=== PATIENT | male | born 1970 | race Caucasian/White ===

== ENCOUNTER → 2016-06-27 | Outpatient (CLI) | payer OTHER ==
[~2016-06-27] MED LIST: ACET500C OR; IBUP200C PO; IBUP400T OR; [UNRECOGNIZED DRUG - OTHER] OR
--- NOTE | 2016-06-28 02:09 | ECWPNPC ---
PATIENT NAME: AUBRIE CRONIN : 1970 GENDER: MALE VISIT DATE: 06/27/2016 DISCHARGE DATE: 06/27/16 0915 VISIT LOCKED DATE TIME: PHYSICIAN: KAMILA PASTRANA RESOURCE: KAMILA PASTRANA REASON FOR APPOINTMENT 1. LOW BACK PAIN HISTORY OF PRESENT ILLNESS HISTORY OF PRESENT ILLNESS: PAIN THE PATIENT DESCRIBES THE PAIN... FALL RISK SCREENING: SCREENING :NO FALLS IN THE PAST YEAR TODAY'S VISIT: NOTES: WC FOLLOWUP FOR LOW BACK PAIN. RATES PAIN TODAY 3/10. DESCRIBES PAIN CONSTANT, ACHING AND SORE. NOTES PAIN IS ALWAYS WORSE DENIA THING IN THE MORNING. PAIN IS CENTERED ACROSS THE LOW BACK WITH RADIATION INTO BOTH BUTTUCKS AND TO LEGS TO LEVEL OF THE POSTERIOR KNEE. THIS IMPROVES WITH ACTIVITY THROUGH THE DAY. NO RECENT FALLS OR INJURIES. NO NUMBNESS, TINGLING OR WEAKNESS IN LEGS. . CURRENT MEDICATIONS TAKING MULTIVITAMINS CAPSULE 1 CAP ORALLY DAILY TAKING ALEVE 1-2 TABS ORALLY DAILY TAKING ZYRTEC 1 TAB ORAL DAILY MEDICATION LIST REVIEWED AND RECONCILED WITH THE PATIENT PAST MEDICAL HISTORY NO MEDICAL HISTORY. ALLERGIES POISON FRANTZ: RASH: ALLERGY SURGICAL HISTORY NO SURGICAL HISTORY DOCUMENTED. SOCIAL HISTORY GENERAL: TOBACCO USE ARE YOU A:NONSMOKER LEARNING BARRIERS / SPECIAL NEEDS ORIENTED TO PLAN OF CARE: PATIENT, PAIN MANAGEMENT PATIENT, ORIENTED TO PLAN OF CARE: PATIENT, PAIN MANAGEMENT PATIENT. NEW PATIENT PAIN DIARY TODAY'S VISITNOTES FROM 0-10, WHAT LEVEL IS YOUR PAIN TODAY?0 PAIN CLINIC PFS, CLERGY, PUBLIC HEALTH REFERRALS PFS REFERRAL NEEDED?NO CLERGY REFERRAL NEEDED?NO PUBLIC HEALTH REFERRAL NEEDED?NO WAS THE PROVIDER NOTIFIED OF ANY PERTINENT INFO?NO PFS REFERRAL NEEDED?NO CLERGY REFERRAL NEEDED?NO PUBLIC HEALTH REFERRAL NEEDED?NO WAS THE PROVIDER NOTIFIED OF ANY PERTINENT INFO?NO REVIEW OF SYSTEMS CONSTITUTIONAL: ANY CHANGE IN YOUR MEDICAL CONDITION? NO . CHILLS NO . FEVER NO . INFECTION: DO YOU HAVE NEW INFECTIONS? NO . DO YOU HAVE HISTORY OF MRSA? NO . MUSCULOSKELETAL: ANY NEW PATTERNS OF PAIN OR NUMBNESS? NO . GASTROENTEROLOGY: ANY NEW CHANGE IN BOWEL CONTROL? NO . GENITOURINARY: ANY NEW CHANGE IN BLADDER CONTROL? NO . IS THERE A CHANCE YOU COULD BE ? NO . HEMATOLOGY/LYMPH: DO YOU TAKE ANY BLOOD THINNERS? (FOR EXAMPLE- COUMADIN, PLAVIX, AGGRENOX, PLATEL, PRADAXA, OR XARELTO) NO . WHEN WAS YOUR LAST DOSE? DATE: TIME: . NEUROLOGY: HAVE YOU FALLEN IN THE PAST 6 MONTHS? NO . ANY NEW EXTREMITY NUMBNESS OR WEAKNESS? NO . CARDIOLOGY: DO YOU HAVE A PACEMAKER OR DEFIBRILLATOR? NO . RESPIRATORY: HAVE YOU BEEN SICK IN THE PAST WEEK? NO . FEVER NO . FLU LIKE SYMPTOMS? NO . COUGH NO . INTEGUMENTARY: DO YOU HAVE ANY RASHES OR OPEN SORES? NO . ALLERGIC/IMMUNO: ARE YOU ALLERGIC TO SHELLFISH OR IV DYE? NO . ANY NEW ALLERGIES? YES,POISON FRANTZ . PSYCHIATRIC: DO YOU HAVE THOUGHTS OF HURTING YOURSELF OR SOMEONE ELSE? NO . ARE YOU ABUSED, NEGLECTED, OR IN AN UNSAFE ENVIRONMENT? NO . ENDOCRINOLOGY: ARE YOU DIABETIC? NO . OTHER: DO YOU NEED ANY PRESCRIPTIONS? NO . IF YES, PLEASE LIST: ____ . ANY NEW PROBLEMS WITH YOUR MEDICATIONS? NO . WHEN DID YOU LAST EAT? ____ . WHEN DID YOU LAST DRINK? ____ . WHAT DID YOU LAST DRINK? ____ . NAME OF PERSON DRIVING YOU HOME? ____ . DO YOU HAVE ANY OTHER QUESTIONS OR CONCERNS NO . REVIEWED BY: PROVIDER: KAMILA NEW . VITAL SIGNS WT 183 LBS, HT 67 IN, BMI 28.66 INDEX, BP 134/80 MM HG, HR 75 /MIN, RR 16 /MIN, TEMP 97.3 F, OXYGEN SAT % 98, NA INITIALS TL 0849, REVIEWED BY: CS. EXAMINATION GENERAL EXAMINATION: LUNGS:CLEAR TO AUSCULTATION BILATERALLY. HEART:HEART RATE REGULAR. MUSCULOSKELETAL:MUSCLE STRENGTH TESTING 5/5 BILATERAL LOWER EXTREMITIES. MILD TENDERNESS OVER LUMBOSACRAL AXIS AND ACROSS SACRUM. RISES EASILY TO A STANDING POSITION. POSTURE SLIGHTLY STOOPED. GAIT NONANTALGIC. ASSESSMENTS LUMBAR DISC DISPLACEMENT WITHOUT MYELOPATHY - M51.26 (PRIMARY) LUMBAR FACET ARTHROPATHY - M46.96 TREATMENT LUMBAR DISC DISPLACEMENT WITHOUT MYELOPATHY NOTES: CONTINUE EXERCISES AND STRETCHES ON A DAILY BASIS. CALL IF INCREASED PAIN. PROCEDURES PN WORKMANS' COMP OPINION IN YOUR OPINION, WAS THE INCIDENT THAT THE PATIENT DESCRIBED THE COMPETENT MEDICAL CAUSE OF THIS INJURY/ILLNESS? YES ARE THE PATIENT'S COMPLAINTS CONSISTENT WITH HIS/HER HISTORY OF THE INJURY/ILLNESS? YES IS THE PATIENT'S HISTORY OF THE INJURY/ILLNESS CONSISTENT WITH YOUR OBJECTIVE FINDING? YES WHAT IS THE PERCENTAGE OF TEMPORARY IMPAIRMENT? MODERATE TO MARKED = 66.7% IS THE PATIENT WORKING? YES DOCTOR ON SITE: BARAK DE LA FUENTE MD PROCEDURE CODES FA211 ESTABILISHED PATIENT [facility] CHARGE DISPOSITION & COMMUNICATION FOLLOW UP 10 MONTHS (REASON: WC BACK) ELECTRONICALLY SIGNED BY LIZETTE RODRIGEUS ON 06/27/2016 AT 10:11 AM EST DISCLAIMER : THIS IS A VISIT SUMMARY EXTRACTED FROM THE [employer] CHART. IT IS NOT A COPY OF THE [employer] PROGRESS NOTE. ANTHONY
== END ==
LOC: M PAIN 08:30
PROVIDERS: ATTEND Nurse Practitioner Family
DX: M51.26 Other intervertebral disc displacement, lumbar region (principal); M46.96 Unspecified inflammatory spondylopathy, lumbar region; L23.7 Allergic contact dermatitis due to plants, except food

== ENCOUNTER → 2016-08-27 | Outpatient (REF) | payer OTHER | LOC: M LAB REF 16:34 | PROVIDERS: ATTEND Nurse Practitioner Family | DX: L23.7 Allergic contact dermatitis due to plants, except food (principal) ==

== ENCOUNTER → 2017-06-18 | Outpatient (CLI) | payer OTHER | LOC: M PAIN 10:15 | DX: M51.26 Other intervertebral disc displacement, lumbar region (principal); M46.96 Unspecified inflammatory spondylopathy, lumbar region; L25.5 Unspecified contact dermatitis due to plants, except food; Z79.899 Other long term (current) drug therapy | CPT/HCPCS: G0463 ==

== ENCOUNTER → 2017-10-17 | Outpatient (REF) | payer OTHER ==
[2017-10-17 13:12] LABS: RHEUMATOID FACTOR QUANT < 10.0 IU/ML (<15.0)
[2017-10-18 14:59] LABS: ANTINUCLEAR ANTIBODIES DIRECT Negative (Negative)
== END ==
LOC: M LAB REF 12:19
DX: M13.0 Polyarthritis, unspecified (principal)

== ENCOUNTER → 2018-05-02 | Outpatient (CLI) | payer OTHER ==
[~2018-05-02] MED LIST changes: -IBUP200C PO; +IBUP200C25 PO
--- NOTE | 2018-05-17 23:46 | ECWPNPC ---
PATIENT NAME: AUBRIE CRONIN : 1970 GENDER: MALE VISIT DATE: 05/02/2018 DISCHARGE DATE: 05/02/18 1151 VISIT LOCKED DATE TIME: PHYSICIAN: BARAK HYATT MD RESOURCE: BARAK HYATT MD REASON FOR APPOINTMENT 1. WC BACK HISTORY OF PRESENT ILLNESS HISTORY OF PRESENT ILLNESS: PAIN THE PATIENT DESCRIBES THE PAIN... 48 YEAR OLD MALE PATIENT WITH A HISTORY OF CHRONIC LOW BACK PAIN. THE PATIENT DESCRIBES THE PAIN ACHING AND CONTINUOUS WITH A PAIN SCORE OF 3-4/10 DEPENDING ON THE ACTIVITIES HE IS DOING. 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 THE PATIENT SAYS THAT THE PAIN STARTS IN HIS LOW BACK AND RADIATES DOWN INTO HIS LEFT LEG. THE PATIENT SAYS THAT HE HAS DIFFICULTY LIFTING DUE TO THIS PAIN. THE PATIENT STATES THAT MEDICATION, PHYSICAL THERAPY, AND INJECTION THERAPY HAVE HELPED IN THE PAST. PATIENT DENIES UNEXPLAINABLE WEIGHT LOSS, FEVER, CHILLS, NEW CHANGES ON HIS URINARY OR BOWEL CONTROL. FALL RISK SCREENING: SCREENING :NO FALLS IN THE PAST YEAR CURRENT MEDICATIONS TAKING MULTIVITAMINS CAPSULE 1 CAP ORALLY DAILY TAKING ALEVE 1-2 TABS ORALLY DAILY TAKING BENADRYL ALLERGY 25 MG TABLET 1 TABLET NEEDED ORALLY EVERY 8 HRS TAKING BENADRYL EXTRA STRENGTH 2-0.1 % CREAM 1 APPLICATION TO AFFECTED AREA NEEDED EXTERNALLY THREE TIMES A DAY TAKING CETIRIZINE HCL 10 MG TABLET 1 TABLET ORALLY ONCE A DAY NOT-TAKING PRAMOSONE 1-2.5 % CREAM APPLY TO AFFECTED AREAS ON BOTH ARMS EXTERNALLY TWICE A DAY NOT-TAKING PREDNISONE 10 MG TABLET 4 TABS DAILY X 3 DAYS, 3 TABS DAILY X 3 DAYS, 2 TABS DAILY X 3 DAYS, THEN 1 TAB DAILY X 3 DAYS ORALLY ONCE A DAY MEDICATION LIST REVIEWED AND RECONCILED WITH THE PATIENT PAST MEDICAL HISTORY MEDICAL HISTORY VERIFIED. ALLERGIES POISON FRANTZ: RASH: ALLERGY SURGICAL HISTORY NO SURGICAL HISTORY DOCUMENTED. FAMILY HISTORY FATHER: , DIAGNOSED WITH DIABETES, HYPERTENSION MOTHER: ALIVE, DIAGNOSED WITH DIABETES, HYPERTENSION SIBLINGS: DIAGNOSED WITH HYPERTENSION 2 BROTHER(S) . DAD , PARKINSON'S DISEASE. SOCIAL HISTORY GENERAL: TOBACCO USE ARE YOU A:NONSMOKER HIV / HEP-C SCREENING HIV TEST OFFERED TO PATIENT:YES DATE OFFERED:08/24/2016 TEST ACCEPTED:NO REASON:PATIENT DECLINED HEP-C TEST OFFERED TO PATIENT:NO LEARNING BARRIERS / SPECIAL NEEDS BARRIERS TO LEARNING?NO HEARING IMPAIRED?NO VISION IMPAIRED?NO COGNITIVELY IMPAIRED?NO READINESS TO LEARN?YES LEARNING PREFERENCES?NO LEARNING CAPABILITIES PRESENT?YES EMOTIONAL BARRIERS?NO SPECIAL DEVICES?NO LICENSED LOAN OFFICER ASSISTANT NEEDED?NO PAIN CLINIC PFS, CLERGY, PUBLIC HEALTH REFERRALS HAS THE PATIENT BEEN EDUCATED REGARDING HIS/HER PLAN OF CARE?YES HAS THE PATIENT BEEN EDUCATED REGARDING PAIN, THE RISK FOR PAIN, THE IMPORTANCE OF EFFECTIVE PAIN MANAGEMENT, AND THE PAIN ASSESSMENT PROCESS?YES ADVANCE DIRECTIVE ADVANCE DIRECTIVE DISCUSSED WITH PATIENT:YES PT HAS NO ADVANCED DIRECTIVES, DECLINES INFORMATION OR ASSISTANCE AT THIS TIME REVIEWED WITH PT 05/02/18 1115 LAS. HOSPITALIZATION/MAJOR DIAGNOSTIC PROCEDURE NO HOSPITALIZATION HISTORY. REVIEW OF SYSTEMS REVIEWED BY: PROVIDER: BARAK HYATT MD . CONSTITUTIONAL: ANY CHANGE IN YOUR MEDICAL CONDITION? NO . CHILLS NO . FEVER NO . INFECTION: DO YOU HAVE NEW INFECTIONS? NO . DO YOU HAVE HISTORY OF MRSA? NO . MUSCULOSKELETAL: ANY NEW PATTERNS OF PAIN OR NUMBNESS? NO . GASTROENTEROLOGY: ANY NEW CHANGE IN BOWEL CONTROL? NO . GENITOURINARY: ANY NEW CHANGE IN BLADDER CONTROL? NO . IS THERE A CHANCE YOU COULD BE ? NO . HEMATOLOGY/LYMPH: DO YOU TAKE ANY BLOOD THINNERS? (FOR EXAMPLE- COUMADIN, PLAVIX, AGGRENOX, PLATEL, PRADAXA, OR XARELTO) NO . WHEN WAS YOUR LAST DOSE? DATE: TIME: . NEUROLOGY: HAVE YOU FALLEN IN THE PAST 6 MONTHS? NO . ANY NEW EXTREMITY NUMBNESS OR WEAKNESS? NO . CARDIOLOGY: DO YOU HAVE A PACEMAKER OR DEFIBRILLATOR? NO . RESPIRATORY: HAVE YOU BEEN SICK IN THE PAST WEEK? NO . FEVER NO . FLU LIKE SYMPTOMS? NO . COUGH NO . INTEGUMENTARY: DO YOU HAVE ANY RASHES OR OPEN SORES? NO . ALLERGIC/IMMUNO: ARE YOU ALLERGIC TO SHELLFISH OR IV DYE? NO . ANY NEW ALLERGIES? NO . PSYCHIATRIC: DO YOU HAVE THOUGHTS OF HURTING YOURSELF OR SOMEONE ELSE? NO . ARE YOU ABUSED, NEGLECTED, OR IN AN UNSAFE ENVIRONMENT? NO . ENDOCRINOLOGY: ARE YOU DIABETIC? NO . OTHER: DO YOU NEED ANY PRESCRIPTIONS? NO . IF YES, PLEASE LIST: ____ . ANY NEW PROBLEMS WITH YOUR MEDICATIONS? NO . WHEN DID YOU LAST EAT? ____ . WHEN DID YOU LAST DRINK? ____ . WHAT DID YOU LAST DRINK? ____ . NAME OF PERSON DRIVING YOU HOME? ____ . DO YOU HAVE ANY OTHER QUESTIONS OR CONCERNS NO . VITAL SIGNS WT 197.6 LBS, HT 67 IN, BMI 30.95 INDEX, BP 145/78 MM HG, HR 65 /MIN, RR 16 /MIN, TEMP 97.4 F, OXYGEN SAT % 99%, SAFE IN ENV? (Y/N) YES, NA INITIALS SC 11:05, REVIEWED BY: SYLVIE. EXAMINATION GENERAL EXAMINATION: PATIENT IS ALERT O X 3 AND COOPERATIVE. MILD TENDERNESS IN THE LOW BACK AREA. NORMAL GAIT. MRI OF THE LUMBAR SPINE DONE ON 03/22/2010 SHOWS BULGING DISCS AND FACET ARTHROPATHY CHANGES AT MULTIPLE LEVELS. ASSESSMENTS INTERVERTEBRAL DISC DISORDER WITH RADICULOPATHY OF LUMBAR REGION - M51.16 (PRIMARY) TREATMENT INTERVERTEBRAL DISC DISORDER WITH RADICULOPATHY OF LUMBAR REGION CLINICAL NOTES: WE DISCUSSED SEVERAL ISSUES WITH MR. CRONIN'S PAIN MANAGEMENT CASE. THE PATIENT REPORTS THAT HIS CONDITION IS STABLE AT THIS TIME AND THAT HE IS DOING WELL, SO THE PATIENT WILL FOLLOW UP IN SEVERAL MONTHS. INSTRUCTIONS WERE GIVEN, QUESTIONS WERE ANSWERED, PATIENT REPORTS UNDERSTANDING AND AGREES WITH THE PLAN. I, MICKIE RODRIGUEZ, DOCUMENTED THE ABOVE INFORMATION ACTING A SCRIBE FOR DR. HYATT. I HAVE REVIEWED THE ABOVE DOCUMENT, WRITTEN BY MICKIE CORONADO AND I VERIFY THAT IT IS ACCURATE. PROCEDURES PN WORKMANS' COMP OPINION IN YOUR OPINION, WAS THE INCIDENT THAT THE PATIENT DESCRIBED THE COMPETENT MEDICAL CAUSE OF THIS INJURY/ILLNESS? YES ARE THE PATIENT'S COMPLAINTS CONSISTENT WITH HIS/HER HISTORY OF THE INJURY/ILLNESS? YES IS THE PATIENT'S HISTORY OF THE INJURY/ILLNESS CONSISTENT WITH YOUR OBJECTIVE FINDING? YES WHAT IS THE PERCENTAGE OF TEMPORARY IMPAIRMENT? MODERATE TO MARKED = 66.7% IS THE PATIENT WORKING? YES DOCTOR ON SITE: BARAK DE LA FUENTE MD PROCEDURE CODES FA211 ESTABILISHED PATIENT [facility] FACILITY CHARGE G8427 CURRENT MEDS W/DOSAGES DOCUMENTED G8730 PAIN ASSESS POS TOOL F/U PLAN DOC DISPOSITION & COMMUNICATION FOLLOW UP MONTHS ELECTRONICALLY SIGNED BY BARAK HYATT MD, MD ON 05/17/2018 AT 09:34 PM EST DISCLAIMER : THIS IS A VISIT SUMMARY EXTRACTED FROM THE [employer] CHART. IT IS NOT A COPY OF THE [employer] PROGRESS NOTE. ANTHONY
== END ==
LOC: M PAIN 11:00
PROVIDERS: ATTEND Anesthesiology
DX: M51.16 Intervertebral disc disorders with radiculopathy, lumbar region (principal); G89.29 Other chronic pain; Z79.899 Other long term (current) drug therapy; Z91.09 Other allergy status, other than to drugs and biological substances

== ENCOUNTER → 2019-04-16 | Outpatient (CLI) | payer OTHER ==
--- NOTE | 2019-04-21 03:00 | ECWPNPC ---
PATIENT NAME: AUBRIE CRONIN : 1970 GENDER: MALE VISIT DATE: 04/16/2019 DISCHARGE DATE: 04/16/19 1002 VISIT LOCKED DATE TIME: PHYSICIAN: DEXTER RAMSEY RESOURCE: DEXTER RAMSEY REASON FOR APPOINTMENT 1. W/C BACK HISTORY OF PRESENT ILLNESS HISTORY OF PRESENT ILLNESS: PAIN THE PATIENT DESCRIBES THE PAIN... 48 YEAR OLD MALE PATIENT WITH A HISTORY OF CHRONIC LOW BACK PAIN. THE PATIENT DESCRIBES THE PAIN ACHING AND SORE WITH A PAIN SCORE OF 5/10 DEPENDING ON THE ACTIVITIES HE IS DOING. 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 THE PATIENT SAYS THAT THE PAIN STARTS IN HIS LOW BACK AND RADIATES DOWN INTO BOTH LEGS. THE PATIENT SAYS THAT HE HAS DIFFICULTY LIFTING DUE TO THIS PAIN. THE PATIENT STATES THAT MEDICATION, PHYSICAL THERAPY, AND INJECTION THERAPY HAVE HELPFUL IN THE PAST. WOULD LIKE TO DISCUSS LESI TODAY WITH A GOAL OF DECREASED PAIN AND INCREASED FUNCTIONALITY. FALL RISK SCREENING: SCREENING :NO FALLS REPORTED IN THE LAST YEAR CURRENT MEDICATIONS TAKING MULTIVITAMINS CAPSULE 1 CAP ORALLY DAILY TAKING CETIRIZINE HCL 10 MG TABLET 1 TABLET ORALLY ONCE A DAY TAKING ALEVE 1-2 TABS ORALLY DAILY DISCONTINUED BENADRYL EXTRA STRENGTH 2-0.1 % CREAM 1 APPLICATION TO AFFECTED AREA NEEDED EXTERNALLY THREE TIMES A DAY MEDICATION LIST REVIEWED AND RECONCILED WITH THE PATIENT PAST MEDICAL HISTORY MEDICAL HISTORY VERIFIED. ALLERGIES POISON FRANTZ: RASH - ALLERGY SURGICAL HISTORY NO SURGICAL HISTORY DOCUMENTED. FAMILY HISTORY FATHER: , DIAGNOSED WITH DIABETES, HYPERTENSION MOTHER: ALIVE, DIABETES, HYPERTENSION SIBLINGS: HYPERTENSION 2 BROTHER(S) . DAD , PARKINSON'S DISEASE. SOCIAL HISTORY GENERAL: TOBACCO USE ARE YOU A:NONSMOKER PAIN CLINIC PFS, CLERGY, PUBLIC HEALTH REFERRALS HAS THE PATIENT BEEN EDUCATED REGARDING HIS/HER PLAN OF CARE?YES HAS THE PATIENT BEEN EDUCATED REGARDING PAIN, THE RISK FOR PAIN, THE IMPORTANCE OF EFFECTIVE PAIN MANAGEMENT, AND THE PAIN ASSESSMENT PROCESS?YES LATEX QUESTIONNAIRE LATEX ALLERGY : HAVE YOU EVER DEVELOPED ANY TYPE OF REACTION AFTER HANDLING LATEX PRODUCTS SUCH RUBBER GLOVES, CONDOMS, DIAPHRAGMS, BALLOONS, SOCKS, OR UNDERWEAR?NO LATEX ALLERGY : HAVE YOU EVER DEVELOPED ANY TYPE OF REACTION DURING OR AFTER DENTAL APPOINTMENT, VAGINAL/RECTAL EXAMINATION, SURGICAL PROCEDURE, OR ANY OTHER EXPOSURE?NO LATEX RISK : HAVE YOU EVER HAD ANY DIFFICULTY BREATHING OR HIVES AFTER EATING OR HANDLING ANY FRUITS, OR VEGETABLES; SUCH KIWI, BANANAS, STONE FRUITS, OR CHESTNUTSNO LATEX RISK : DO YOU HAVE A PREVIOUS PERSONAL HISTORY OF MORE THAN NINE SURGERIES, SPINA BIFIDA, OR REPEATED CATHERIZATIONS? NO LATEX RISK : ARE YOU FREQUENTLY EXPOSED TO LATEX PRODUCTS IN YOUR OCCUPATION?YES DATE ASKED : 04/16/2019 HIV / HEP-C SCREENING HIV TEST OFFERED TO PATIENT:YES DATE OFFERED:08/24/2016 TEST ACCEPTED:NO HEP-C TEST OFFERED TO PATIENT:NO REASON:PATIENT DECLINED ADVANCE DIRECTIVE ADVANCE DIRECTIVE DISCUSSED WITH PATIENT:YES PT HAS NO ADVANCED DIRECTIVES, DECLINES INFORMATION OR ASSISTANCE AT THIS TIME VD LEARNING BARRIERS / SPECIAL NEEDS BARRIERS TO LEARNING?NO HEARING IMPAIRED?NO VISION IMPAIRED?NO COGNITIVELY IMPAIRED?NO READINESS TO LEARN?YES LEARNING PREFERENCES?NO LEARNING CAPABILITIES PRESENT?YES EMOTIONAL BARRIERS?NO SPECIAL DEVICES?NO SLIVER LAPPER NEEDED?NO REVIEWED WITH PT 05/02/18 1115 LAS. HOSPITALIZATION/MAJOR DIAGNOSTIC PROCEDURE NO HOSPITALIZATION HISTORY. REVIEW OF SYSTEMS REVIEWED BY: PROVIDER: SONNY NEW-Cortez . CONSTITUTIONAL: ANY CHANGE IN YOUR MEDICAL CONDITION? NO . CHILLS NO . FEVER NO . INFECTION: DO YOU HAVE NEW INFECTIONS? NO . DO YOU HAVE HISTORY OF MRSA? NO . MUSCULOSKELETAL: ANY NEW PATTERNS OF PAIN OR NUMBNESS? YES . GASTROENTEROLOGY: ANY NEW CHANGE IN BOWEL CONTROL? NO . GENITOURINARY: ANY NEW CHANGE IN BLADDER CONTROL? NO . IS THERE A CHANCE YOU COULD BE ? NO . HEMATOLOGY/LYMPH: DO YOU TAKE ANY BLOOD THINNERS? (FOR EXAMPLE- COUMADIN, PLAVIX, AGGRENOX, PLATEL, PRADAXA, OR XARELTO) NO . WHEN WAS YOUR LAST DOSE? DATE: TIME: . NEUROLOGY: HAVE YOU FALLEN IN THE PAST 12 MONTHS? NO . ANY NEW EXTREMITY NUMBNESS OR WEAKNESS? NO . CARDIOLOGY: DO YOU HAVE A PACEMAKER OR DEFIBRILLATOR? NO . RESPIRATORY: HAVE YOU BEEN SICK IN THE PAST WEEK? NO . FEVER NO . FLU LIKE SYMPTOMS? NO . COUGH NO . INTEGUMENTARY: DO YOU HAVE ANY RASHES OR OPEN SORES? NO . ALLERGIC/IMMUNO: ARE YOU ALLERGIC TO IV DYE? NO . ANY NEW ALLERGIES? NO . PSYCHIATRIC: DO YOU HAVE THOUGHTS OF HURTING YOURSELF OR SOMEONE ELSE? NO . ARE YOU ABUSED, NEGLECTED, OR IN AN UNSAFE ENVIRONMENT? NO . ENDOCRINOLOGY: ARE YOU DIABETIC? NO . OTHER: DO YOU NEED ANY PRESCRIPTIONS? NO . IF YES, PLEASE LIST: ____ . ANY NEW PROBLEMS WITH YOUR MEDICATIONS? NO . WHEN DID YOU LAST EAT? ____ . WHEN DID YOU LAST DRINK? ____ . WHAT DID YOU LAST DRINK? ____ . NAME OF PERSON DRIVING YOU HOME? ____ . DO YOU HAVE ANY OTHER QUESTIONS OR CONCERNS NO . VITAL SIGNS WT 199.2 LBS, HT 67 IN, BMI 31.20 INDEX, BP 138/96 MM HG, HR 72 /MIN, RR 16 /MIN, TEMP 96.7 F, OXYGEN SAT % 99%, SAFE IN ENV? (Y/N) YES, NA INITIALS [place] 09:14, REVIEWED BY: NERIS. EXAMINATION GENERAL EXAMINATION: GENERALNO ACUTE DISTRESS, WELL NOURISHED AND HYDRATED. PSYCHAPPROPRIATE MOOD AND AFFECT . LUNGS:CLEAR TO AUSCULTATION BILATERALLY, NO WHEEZES, RHONCHI, RALES. HEART:NO MURMURS, REGULAR RATE AND RHYTHM. BACK:POINT TENDER OVER LUMBAR SPINE, STARTING SKIN SHOWS NO ERYTHEMA, ECCHYMOSIS, INCREASED WARMTH, AND/OR SKIN ERUPTIONS NOTED. PATIENT DOES ENDORSE INCREASED PAIN WITH FACET LOADING. . EXTREMITIES:EQUAL STRENGTH OF THE LOWER EXTREMITIES BILATERALLY . ASSESSMENTS INTERVERTEBRAL DISC DISORDER WITH RADICULOPATHY OF LUMBAR REGION - M51.16 (PRIMARY) TREATMENT INTERVERTEBRAL DISC DISORDER WITH RADICULOPATHY OF LUMBAR REGION [facility] MRI LUMBAR W/O CONTRAST (CPT [id number] NOTES: LESI L4-L5 L5-S1 PT. GIVEN LUMBAR EPIDURAL INFORMATION, AND REVIEWED WITH PT. ELENA OLIVEROS. CLINICAL NOTES: 49-YEAR-OLD MALE IN FOR WORKER'S COMP. CHRONIC PAIN FOLLOW-UP. GIVEN PRESENTING SYMPTOMS AND RESULTS OF PHYSICAL EXAMNATION RECOMMEND GETTING AN UPDATED MRI, AND LESI L4-L5 L5-S1 WITH POSTPROCEDURAL FOLLOW-UP. PATIENT HAS EXPRESSED UNDERSTANDING OF AND WAS IN AGREEMENT WITH TREATMENT PLAN. GIVEN TIME TO ASK QUESTIONS AND EXPRESS CONCERNS. PROCEDURES PN WORKMANS' COMP OPINION IN YOUR OPINION, WAS THE INCIDENT THAT THE PATIENT DESCRIBED THE COMPETENT MEDICAL CAUSE OF THIS INJURY/ILLNESS? YES ARE THE PATIENT'S COMPLAINTS CONSISTENT WITH HIS/HER HISTORY OF THE INJURY/ILLNESS? YES IS THE PATIENT'S HISTORY OF THE INJURY/ILLNESS CONSISTENT WITH YOUR OBJECTIVE FINDING? YES WHAT IS THE PERCENTAGE OF TEMPORARY IMPAIRMENT? MODERATE TO MARKED = 66.7% IS THE PATIENT WORKING? YES DOCTOR ON SITE: BARAK DE LA FUENTE MD DISPOSITION & COMMUNICATION FOLLOW UP POSTPROCEDURE (REASON: LUMBAR MRI, LESI L4-L5 L5-S1) ELECTRONICALLY SIGNED BY VIRGEN RAMIREZ ON 04/20/2019 AT 08:33 AM EST DISCLAIMER : THIS IS A VISIT SUMMARY EXTRACTED FROM THE [employer] CHART. IT IS NOT A COPY OF THE [employer] PROGRESS NOTE. ANTHONY
== END ==
LOC: M PAIN 09:15
PROVIDERS: ATTEND Family Medicine
DX: M51.16 Intervertebral disc disorders with radiculopathy, lumbar region (principal); G89.29 Other chronic pain; Z79.899 Other long term (current) drug therapy

== ENCOUNTER → 2019-06-02 | Outpatient (CLI) | payer OTHER ==
[~2019-06-02] MED LIST changes: +ISOVUE-M 300 61% 15ML VIAL (Q9967) As Ordered ONE; +LIDOCAINE 1% SDV INJ 30 ML VIAL As Ordered ONE; +methylPREDNISolone SUSP 40 MG/ML (DEPO-medrol) VIAL (J1030) As Ordered ONE
--- NOTE | 2019-06-02 12:32 | REP ---
Partial lumbar spine: Single view. History: Lumbar epidural steroid injection for pain. 12 seconds of fluoroscopy time is reported. Findings: A single last image hold fluoroscopically obtained spot radiograph of the lumbosacral junction documents needle position and contrast injection associated with epidural injection procedure. Electronically Signed by Varun Solis MD 06/02/2019 06:53 P
--- NOTE | 2019-06-12 04:57 | ECWPNPC ---
PATIENT NAME: AUBRIE CRONIN : 1970 GENDER: MALE VISIT DATE: 06/02/2019 DISCHARGE DATE: 06/02/19 1131 VISIT LOCKED DATE TIME: PHYSICIAN: BARAK HYATT MD RESOURCE: BARAK HYTAT MD REASON FOR APPOINTMENT 1. W/C LESI L5-S1 HISTORY OF PRESENT ILLNESS HISTORY OF PRESENT ILLNESS: PAIN THE PATIENT DESCRIBES THE PAIN... FALL RISK SCREENING: SCREENING :NO FALLS REPORTED IN THE LAST YEAR CURRENT MEDICATIONS TAKING MULTIVITAMINS CAPSULE 1 CAP ORALLY DAILY, NOTES: 06/01 0630 TAKING CETIRIZINE HCL 10 MG TABLET 1 TABLET ORALLY ONCE A DAY, NOTES: 06/01 173 TAKING ALEVE 220 MG TABLET 1-2 TABS ORALLY DAILY, NOTES: 06/01 183 MEDICATION LIST REVIEWED AND RECONCILED WITH THE PATIENT PAST MEDICAL HISTORY LOW BACK PAIN ENVIRONMENTAL ALLERGIES ALLERGIES POISON FRANTZ: RASH - ALLERGY SURGICAL HISTORY NO SURGICAL HISTORY DOCUMENTED. FAMILY HISTORY FATHER: , DIAGNOSED WITH DIABETES, HYPERTENSION MOTHER: ALIVE, HYPERTENSION, DIABETES SIBLINGS: HYPERTENSION 2 BROTHER(S) . DAD , PARKINSON'S DISEASE. SOCIAL HISTORY GENERAL: TOBACCO USE ARE YOU A:NONSMOKER HIV / HEP-C SCREENING HIV TEST OFFERED TO PATIENT:YES DATE OFFERED:08/24/2016 TEST ACCEPTED:NO HEP-C TEST OFFERED TO PATIENT:NO REASON:PATIENT DECLINED EDUCATION LEVEL OF EDUCATION:HIGH SCHOOL LANGUAGE LANGUAGES SPOKEN:MONTSERRATIAN DOMESTIC VIOLENCE DO YOU FEEL SAFE IN YOUR ENVIRONMENT?YES RECREATIONAL DRUG USE DRUG USE?NO LEARNING BARRIERS / SPECIAL NEEDS BARRIERS TO LEARNING?NO HEARING IMPAIRED?NO VISION IMPAIRED?NO COGNITIVELY IMPAIRED?NO READINESS TO LEARN?YES LEARNING PREFERENCES?NO LEARNING CAPABILITIES PRESENT?YES EMOTIONAL BARRIERS?NO SPECIAL DEVICES?NO BEADING INSTALLER NEEDED?NO PAIN CLINIC PFS, CLERGY, PUBLIC HEALTH REFERRALS HAS THE PATIENT BEEN EDUCATED REGARDING HIS/HER PLAN OF CARE?YES HAS THE PATIENT BEEN EDUCATED REGARDING PAIN, THE RISK FOR PAIN, THE IMPORTANCE OF EFFECTIVE PAIN MANAGEMENT, AND THE PAIN ASSESSMENT PROCESS?YES LATEX QUESTIONNAIRE LATEX ALLERGY : HAVE YOU EVER DEVELOPED ANY TYPE OF REACTION AFTER HANDLING LATEX PRODUCTS SUCH RUBBER GLOVES, CONDOMS, DIAPHRAGMS, BALLOONS, SOCKS, OR UNDERWEAR?NO LATEX ALLERGY : HAVE YOU EVER DEVELOPED ANY TYPE OF REACTION DURING OR AFTER DENTAL APPOINTMENT, VAGINAL/RECTAL EXAMINATION, SURGICAL PROCEDURE, OR ANY OTHER EXPOSURE?NO LATEX RISK : HAVE YOU EVER HAD ANY DIFFICULTY BREATHING OR HIVES AFTER EATING OR HANDLING ANY FRUITS, OR VEGETABLES; SUCH KIWI, BANANAS, STONE FRUITS, OR CHESTNUTSNO LATEX RISK : DO YOU HAVE A PREVIOUS PERSONAL HISTORY OF MORE THAN NINE SURGERIES, SPINA BIFIDA, OR REPEATED CATHERIZATIONS? NO LATEX RISK : ARE YOU FREQUENTLY EXPOSED TO LATEX PRODUCTS IN YOUR OCCUPATION?YES DATE ASKED : 06/02/2019 CAFFEINE CAFFEINE USE?NO ADVANCE DIRECTIVE ADVANCE DIRECTIVE DISCUSSED WITH PATIENT:YES 06/01/2019 0923 PT DOES NOT HAVE ANY ADVANCED DIRECTIVES AND HE DECLINES INFORMATION ON HCP AT THIS TIME. AD SPIRITISM [id number] NONE ALCOHOL SCREENING DID YOU HAVE A DRINK CONTAINING ALCOHOL IN THE PAST YEAR?NO POINTS0 INTERPRETATIONNEGATIVE REVIEWED WITH PT 05/02/18 1115 LAS. HOSPITALIZATION/MAJOR DIAGNOSTIC PROCEDURE NO HOSPITALIZATION HISTORY. REVIEW OF SYSTEMS REVIEWED BY: PROVIDER: . CONSTITUTIONAL: ANY CHANGE IN YOUR MEDICAL CONDITION? NO . CHILLS NO . FEVER NO . INFECTION: DO YOU HAVE NEW INFECTIONS? NO . DO YOU HAVE HISTORY OF MRSA? NO . MUSCULOSKELETAL: ANY NEW PATTERNS OF PAIN OR NUMBNESS? NO . GASTROENTEROLOGY: ANY NEW CHANGE IN BOWEL CONTROL? NO . GENITOURINARY: ANY NEW CHANGE IN BLADDER CONTROL? NO . IS THERE A CHANCE YOU COULD BE ? NO . HEMATOLOGY/LYMPH: DO YOU TAKE ANY BLOOD THINNERS? (FOR EXAMPLE- COUMADIN, PLAVIX, AGGRENOX, PLATEL, PRADAXA, OR XARELTO) NO . WHEN WAS YOUR LAST DOSE? DATE: TIME: . NEUROLOGY: HAVE YOU FALLEN IN THE PAST 12 MONTHS? NO . ANY NEW EXTREMITY NUMBNESS OR WEAKNESS? NO . CARDIOLOGY: DO YOU HAVE A PACEMAKER OR DEFIBRILLATOR? NO . RESPIRATORY: HAVE YOU BEEN SICK IN THE PAST WEEK? NO . FEVER NO . FLU LIKE SYMPTOMS? NO . COUGH NO . INTEGUMENTARY: DO YOU HAVE ANY RASHES OR OPEN SORES? NO . ALLERGIC/IMMUNO: ARE YOU ALLERGIC TO IV DYE? NO . ANY NEW ALLERGIES? NO . PSYCHIATRIC: DO YOU HAVE THOUGHTS OF HURTING YOURSELF OR SOMEONE ELSE? NO . ARE YOU ABUSED, NEGLECTED, OR IN AN UNSAFE ENVIRONMENT? NO . ENDOCRINOLOGY: ARE YOU DIABETIC? NO . OTHER: DO YOU NEED ANY PRESCRIPTIONS? NO . IF YES, PLEASE LIST: ____ . ANY NEW PROBLEMS WITH YOUR MEDICATIONS? NO . WHEN DID YOU LAST EAT? 06/01 1999 . WHEN DID YOU LAST DRINK? 06/01 2229 . WHAT DID YOU LAST DRINK? WATER . NAME OF PERSON DRIVING YOU HOME? DOE . DO YOU HAVE ANY OTHER QUESTIONS OR CONCERNS NO PT HAS NOT HAD ANY VACCINES IN THE PAST 30 DAYS . VITAL SIGNS WT 204.2 LBS, HT 67 IN, BMI 31.98 INDEX, BP 149/80 MM HG, HR 65 /MIN, RR 16 /MIN, TEMP 97.2 F, OXYGEN SAT % 99%, SAFE IN ENV? (Y/N) Y, NA INITIALS AW 0908, REVIEWED BY: TRICIA. ASSESSMENTS INTERVERTEBRAL DISC DISORDERS WITH RADICULOPATHY, LUMBOSACRAL REGION - M51.17 (PRIMARY) PROCEDURES PN WORKMANS' COMP OPINION IN YOUR OPINION, WAS THE INCIDENT THAT THE PATIENT DESCRIBED THE COMPETENT MEDICAL CAUSE OF THIS INJURY/ILLNESS? YES ARE THE PATIENT'S COMPLAINTS CONSISTENT WITH HIS/HER HISTORY OF THE INJURY/ILLNESS? YES IS THE PATIENT'S HISTORY OF THE INJURY/ILLNESS CONSISTENT WITH YOUR OBJECTIVE FINDING? YES WHAT IS THE PERCENTAGE OF TEMPORARY IMPAIRMENT? MODERATE TO MARKED = 66.7% IS THE PATIENT WORKING? YES DOCTOR ON SITE: BARAK DE LA FUENTE MD PRE PROCEDURE DIAGNOSIS LUMBAR DISC DISORDER WITH RADICULOPATHY POST PROCEDURE DIAGNOSIS LUMBAR DISC DISORDER WITH RADICULOPATHY PROCEDURE LUMBAR EPIDURAL STEROID INJECTION UNDER FLUOROSCOPIC GUIDANCE SURGEON DR. BARAK HYATT VICE PRESIDENT OF CUSTOMER SERVICE NONE ANESTHESIA LOCAL PRE PROCEDURE NOTE THE PATIENT HAS A HISTORY OF CHRONIC LOW BACK PAIN. I EVALUATED THE PATIENT AND REVIEWED THE CHART. I WENT OVER THE RISKS, ALTERNATIVES, AND BENEFITS ASSOCIATED WITH THIS PROCEDURE. THE PATIENT WOULD LIKE TO PROCEED AND GIVES CONSENT TO PERFORM THE PROCEDURE. THE PATIENT DENIES UNEXPLAINABLE WEIGHT LOSS, FEVER, CHILLS, OR NEW CHANGES IN URINARY OR BOWEL CONTROL. DESCRIPTION OF PROCEDURE THE PATIENT WAS BROUGHT TO THE PROCEDURE ROOM AND PLACED IN THE PRONE POSITION. THE LUMBOSACRAL AREA WAS CLEANED WITH BETADINE SOLUTION AND DRAPED ASEPTICALLY. THE PROCEDURE WAS DONE UNDER STERILE CONDITIONS. I CHECKED LATERALITY AND THE LEVEL WHERE THE PROCEDURE WAS GOING TO BE PERFORMED WITH THE PATIENT AND THE SUPPORTING STAFF AT THE MOMENT OF THE TIME OUT IN THE PROCEDURE ROOM. UNDER FLUOROSCOPIC GUIDANCE, THE TARGET POINT WAS SELECTED AT THE INTERLAMINAR LEVEL OF L5-S1. LIDOCAINE WAS USED TO NUMB THE SKIN AND THE SUBCUTANEOUS TISSUE BELOW IT. EPIDURAL TUOHY NEEDLE, 17-GAUGE, WAS ADVANCED UNDER FLUOROSCOPIC GUIDANCE AND FOLLOWING PATIENT FEEDBACK UNTIL THE EPIDURAL SPACE WAS REACHED, 7 CM DEEP INTO THE SKIN BY THE LOSS OF RESISTANCE TECHNIQUE. ISOVUE M DYE 30%, 0.25 ML, WAS INJECTED SHOWING ADEQUATE SPREAD OF THE DYE. THEN, A SOLUTION OF 3 ML OF NORMAL SALINE WITH DEPO-MEDROL 60 MG WAS INJECTED SLOWLY FOLLOWING PATIENT FEEDBACK. THERE WAS NO EVIDENCE OF BLOOD, PARESTHESIA OR CEREBROSPINAL FLUID DURING THE PROCEDURE. THE PATIENT WAS SENT TO THE RECOVERY ROOM. THE PATIENT WAS MOVING THE EXTREMITIES AND DOING WELL. THERE WAS NO COMPLICATION DURING THE PROCEDURE. FLUOROSCOPY TIME WAS 12 SECONDS. POST PROCEDURE NOTE THE PATIENT WILL BE SEEN IN A FOLLOW UP IN THE NEXT FEW WEEKS. I AM LOOKING FOR LONG LASTING PAIN RELIEF WITH THIS INJECTION. INSTRUCTIONS WERE GIVEN, QUESTIONS WERE ANSWERED, AND THE PATIENT EXPRESSED UNDERSTANDING AND AGREES WITH THE PLAN. I, ANTELMO ESTRADA, DOCUMENTED THE ABOVE INFORMATION ACTING A SCRIBE FOR DR. HYATT. I HAVE REVIEWED THE ABOVE DOCUMENT, WRITTEN BY ANTELMO ESTRADA SCRIBRobert AND I VERIFY THAT IT IS ACCURATE. DIAGNOSTIC IMAGING [facility] FLUORO GUIDE SPINE INJECTION (PAIN)[id number] PROCEDURE CODES 15995 LUMBAR/SACRAL W/ IMAGING 6045F RADXPS IN END [id number] PXD DISPOSITION & COMMUNICATION FOLLOW UP 2 WEEKS ELECTRONICALLY SIGNED BY BARAK HYATT MD, MD ON 06/11/2019 AT 12:01 PM EST DISCLAIMER : THIS IS A VISIT SUMMARY EXTRACTED FROM THE [employer] CHART. IT IS NOT A COPY OF THE [employer] PROGRESS NOTE. MTDD
== END ==
LOC: M PAIN 09:00
PROVIDERS: ATTEND Anesthesiology
DX: M51.17 Intervertebral disc disorders with radiculopathy, lumbosacral region (principal); Z91.09 Other allergy status, other than to drugs and biological substances; Z79.899 Other long term (current) drug therapy
CPT/HCPCS: 62323; J1030; Q9967

== ENCOUNTER → 2019-06-29 | Outpatient (CLI) | payer OTHER ==
[~2019-06-29] MED LIST changes: -ISOVUE-M 300 61% 15ML VIAL (Q9967) As Ordered ONE; -LIDOCAINE 1% SDV INJ 30 ML VIAL As Ordered ONE; -methylPREDNISolone SUSP 40 MG/ML (DEPO-medrol) VIAL (J1030) As Ordered ONE
--- NOTE | 2019-07-02 03:58 | ECWPNPC ---
PATIENT NAME: AUBRIE CRONIN : 1970 GENDER: MALE VISIT DATE: 06/29/2019 DISCHARGE DATE: 06/29/1937 VISIT LOCKED DATE TIME: PHYSICIAN: DEXTER RAMSEY RESOURCE: DEXTER RAMSEY REASON FOR APPOINTMENT 1. W/C POST LESI HISTORY OF PRESENT ILLNESS HISTORY OF PRESENT ILLNESS: PAIN THE PATIENT DESCRIBES THE PAIN... 49-YEAR-OLD MALE IN FOR POST LESI FOLLOW-UP. HE FEELS THE PROCEDURE WAS EFFECTIVE OVERALL RATING HIS PAIN PREPROCEDURE AT A 5-8 OUT OF 10 AND POSTPROCEDURE AT A 3-4 OUT OF 10. HE FURTHER STATES THE PROCEDURE CONTINUES TO HELP HIM TODAY. HE RATES HIS PAIN CURRENTLY AT A 3-4 OUT OF 10 AND DESCRIBES IT ACHING, AND SHARP.THE PATIENT WAS HURT IN A WORK RELATED INJURY ON 01/24/2010 WHILE WORKING AT [employer] WHEN A TRUCK WAS MOVING AND HE TRIED TO STOP IT FROM HITTING A CAR CAUSING HIM TO INJURE HIS BACK. THE PATIENT SAYS THAT THE PAIN STARTS IN HIS LOW BACK AND RADIATES DOWN INTO BOTH LEGS. THE PATIENT SAYS THAT HE HAS DIFFICULTY LIFTING DUE TO THIS PAIN. THE PATIENT STATES THAT MEDICATION, PHYSICAL THERAPY, AND INJECTION THERAPY HAVE HELPFUL IN THE PAST. FALL RISK SCREENING: SCREENING :NO FALLS REPORTED IN THE LAST YEAR CURRENT MEDICATIONS TAKING MULTIVITAMINS CAPSULE 1 CAP ORALLY DAILY TAKING CETIRIZINE HCL 10 MG TABLET 1 TABLET ORALLY ONCE A DAY TAKING ALEVE 220 MG TABLET 1-2 TABS ORALLY DAILY MEDICATION LIST REVIEWED AND RECONCILED WITH THE PATIENT PAST MEDICAL HISTORY LOW BACK PAIN ENVIRONMENTAL ALLERGIES ALLERGIES POISON FRANTZ: RASH - ALLERGY SURGICAL HISTORY COLONOSCOPY FAMILY HISTORY FATHER: , DIAGNOSED WITH DIABETES, HYPERTENSION MOTHER: ALIVE, DIABETES, HYPERTENSION SIBLINGS: HYPERTENSION 2 BROTHER(S) . DAD , PARKINSON'S DISEASE. SOCIAL HISTORY GENERAL: TOBACCO USE ARE YOU A:NONSMOKER HIV / HEP-C SCREENING HIV TEST OFFERED TO PATIENT:YES DATE OFFERED:08/24/2016 TEST ACCEPTED:NO HEP-C TEST OFFERED TO PATIENT:NO REASON:PATIENT DECLINED EDUCATION LEVEL OF EDUCATION:HIGH SCHOOL LANGUAGE LANGUAGES SPOKEN:TURKMEN DOMESTIC VIOLENCE DO YOU FEEL SAFE IN YOUR ENVIRONMENT?YES RECREATIONAL DRUG USE DRUG USE?NO LEARNING BARRIERS / SPECIAL NEEDS BARRIERS TO LEARNING?NO HEARING IMPAIRED?NO VISION IMPAIRED?NO COGNITIVELY IMPAIRED?NO READINESS TO LEARN?YES LEARNING PREFERENCES?NO LEARNING CAPABILITIES PRESENT?YES EMOTIONAL BARRIERS?NO SPECIAL DEVICES?NO SUPPORT ENGINEER NEEDED?NO PAIN CLINIC PFS, CLERGY, PUBLIC HEALTH REFERRALS HAS THE PATIENT BEEN EDUCATED REGARDING HIS/HER PLAN OF CARE?YES HAS THE PATIENT BEEN EDUCATED REGARDING PAIN, THE RISK FOR PAIN, THE IMPORTANCE OF EFFECTIVE PAIN MANAGEMENT, AND THE PAIN ASSESSMENT PROCESS?YES LATEX QUESTIONNAIRE LATEX ALLERGY : HAVE YOU EVER DEVELOPED ANY TYPE OF REACTION AFTER HANDLING LATEX PRODUCTS SUCH RUBBER GLOVES, CONDOMS, DIAPHRAGMS, BALLOONS, SOCKS, OR UNDERWEAR?NO LATEX ALLERGY : HAVE YOU EVER DEVELOPED ANY TYPE OF REACTION DURING OR AFTER DENTAL APPOINTMENT, VAGINAL/RECTAL EXAMINATION, SURGICAL PROCEDURE, OR ANY OTHER EXPOSURE?NO LATEX RISK : HAVE YOU EVER HAD ANY DIFFICULTY BREATHING OR HIVES AFTER EATING OR HANDLING ANY FRUITS, OR VEGETABLES; SUCH KIWI, BANANAS, STONE FRUITS, OR CHESTNUTSNO LATEX RISK : DO YOU HAVE A PREVIOUS PERSONAL HISTORY OF MORE THAN NINE SURGERIES, SPINA BIFIDA, OR REPEATED CATHERIZATIONS? NO LATEX RISK : ARE YOU FREQUENTLY EXPOSED TO LATEX PRODUCTS IN YOUR OCCUPATION?YES DATE ASKED : 06/02/2019 CAFFEINE CAFFEINE USE?NO ADVANCE DIRECTIVE ADVANCE DIRECTIVE DISCUSSED WITH PATIENT:YES 06/29/2019 PT DOES NOT HAVE ANY ADVANCED DIRECTIVES AND HE DECLINES INFORMATION ON HCP AT THIS TIME. JS ZOROASTRIAN [id number] NONE ALCOHOL SCREENING DID YOU HAVE A DRINK CONTAINING ALCOHOL IN THE PAST YEAR?NO POINTS0 INTERPRETATIONNEGATIVE REVIEWED WITH PT 05/02/18 1115 LAS REVIEWED WITH PATIENT 06/29/2019 0913 JS. HOSPITALIZATION/MAJOR DIAGNOSTIC PROCEDURE DENIES PAST HOSPITALIZATION REVIEW OF SYSTEMS REVIEWED BY: PROVIDER: SONNY DE LA TORREC . CONSTITUTIONAL: ANY CHANGE IN YOUR MEDICAL CONDITION? NO . CHILLS NO . FEVER NO . INFECTION: DO YOU HAVE NEW INFECTIONS? NO . DO YOU HAVE HISTORY OF MRSA? NO . MUSCULOSKELETAL: ANY NEW PATTERNS OF PAIN OR NUMBNESS? NO . GASTROENTEROLOGY: ANY NEW CHANGE IN BOWEL CONTROL? NO . GENITOURINARY: ANY NEW CHANGE IN BLADDER CONTROL? NO . IS THERE A CHANCE YOU COULD BE ? NO . HEMATOLOGY/LYMPH: DO YOU TAKE ANY BLOOD THINNERS? (FOR EXAMPLE- COUMADIN, PLAVIX, AGGRENOX, PLATEL, PRADAXA, OR XARELTO) NO . WHEN WAS YOUR LAST DOSE? DATE: TIME: . NEUROLOGY: HAVE YOU FALLEN IN THE PAST 12 MONTHS? NO . ANY NEW EXTREMITY NUMBNESS OR WEAKNESS? NO . CARDIOLOGY: DO YOU HAVE A PACEMAKER OR DEFIBRILLATOR? NO . RESPIRATORY: HAVE YOU BEEN SICK IN THE PAST WEEK? NO . FEVER NO . FLU LIKE SYMPTOMS? NO . COUGH NO . INTEGUMENTARY: DO YOU HAVE ANY RASHES OR OPEN SORES? NO . ALLERGIC/IMMUNO: ARE YOU ALLERGIC TO IV DYE? NO . ANY NEW ALLERGIES? NO . PSYCHIATRIC: DO YOU HAVE THOUGHTS OF HURTING YOURSELF OR SOMEONE ELSE? NO . ARE YOU ABUSED, NEGLECTED, OR IN AN UNSAFE ENVIRONMENT? NO . ENDOCRINOLOGY: ARE YOU DIABETIC? NO . OTHER: DO YOU NEED ANY PRESCRIPTIONS? NO . IF YES, PLEASE LIST: ____ . ANY NEW PROBLEMS WITH YOUR MEDICATIONS? NO . WHEN DID YOU LAST EAT? ____ . WHEN DID YOU LAST DRINK? ____ . WHAT DID YOU LAST DRINK? ____ . NAME OF PERSON DRIVING YOU HOME? ____ . DO YOU HAVE ANY OTHER QUESTIONS OR CONCERNS NO . VITAL SIGNS WT 209.8 LBS, HT 67 IN, BMI 32.86 INDEX, BP 134/75 MM HG, HR 79 /MIN, RR 16 /MIN, TEMP 97.2 F, OXYGEN SAT % 98%, SAFE IN ENV? (Y/N) YES, NA INITIALS AW 0909, REVIEWED BY: ANNEMARIE. EXAMINATION GENERAL EXAMINATION: GENERALNO ACUTE DISTRESS, WELL NOURISHED AND HYDRATED. PSYCHAPPROPRIATE MOOD AND AFFECT . LUNGS:CLEAR TO AUSCULTATION BILATERALLY, NO WHEEZES, RHONCHI, RALES. HEART:NO MURMURS, REGULAR RATE AND RHYTHM. ASSESSMENTS INTERVERTEBRAL DISC DISORDER WITH RADICULOPATHY OF LUMBAR REGION - M51.16 (PRIMARY) TREATMENT INTERVERTEBRAL DISC DISORDER WITH RADICULOPATHY OF LUMBAR REGION CLINICAL NOTES: 49-YEAR-OLD MALE IN FOR POST LESI FOLLOW-UP. GIVEN PRESENTING SYMPTOMS AND RESULTS OF PHYSICAL EXAMINATION RECOMMENDED FOLLOW-UP IN 2 MONTHS. PATIENT HAS EXPRESSED UNDERSTANDING OF AND WAS IN AGREEMENT WITH TREATMENT PLAN. GIVEN TIME TO ASK QUESTIONS AND EXPRESS CONCERNS. PROCEDURES PN WORKMANS' COMP OPINION IN YOUR OPINION, WAS THE INCIDENT THAT THE PATIENT DESCRIBED THE COMPETENT MEDICAL CAUSE OF THIS INJURY/ILLNESS? YES ARE THE PATIENT'S COMPLAINTS CONSISTENT WITH HIS/HER HISTORY OF THE INJURY/ILLNESS? YES IS THE PATIENT'S HISTORY OF THE INJURY/ILLNESS CONSISTENT WITH YOUR OBJECTIVE FINDING? YES WHAT IS THE PERCENTAGE OF TEMPORARY IMPAIRMENT? MODERATE TO MARKED = 66.7% IS THE PATIENT WORKING? YES DOCTOR ON SITE: BARAK DE LA FUENTE MD PROCEDURE CODES FA211 ESTABILISHED PATIENT [facility] CHARGE DISPOSITION & COMMUNICATION FOLLOW UP 2 MONTHS (REASON: WORKER'S COMP. LOW BACK PAIN) ELECTRONICALLY SIGNED BY VIRGEN RAMIREZ ON 07/01/2019 AT 10:53 AM EST DISCLAIMER : THIS IS A VISIT SUMMARY EXTRACTED FROM THE [employer] CHART. IT IS NOT A COPY OF THE [employer] PROGRESS NOTE. ANTHONY
== END ==
LOC: M PAIN 09:00
PROVIDERS: ATTEND Family Medicine
DX: M51.16 Intervertebral disc disorders with radiculopathy, lumbar region (principal); J30.9 Allergic rhinitis, unspecified; Z79.1 Long term (current) use of non-steroidal anti-inflammatories (NSAID); Z79.899 Other long term (current) drug therapy

== ENCOUNTER → 2019-09-11 | Outpatient (CLI) | payer OTHER ==
--- NOTE | 2019-09-15 04:39 | ECWPNPC ---
PATIENT NAME: AUBRIE CRONIN : 1970 GENDER: MALE VISIT DATE: 09/11/2019 DISCHARGE DATE: 09/11/19915 VISIT LOCKED DATE TIME: PHYSICIAN: DEXTER RAMSEY RESOURCE: DEXTER RAMSEY REASON FOR APPOINTMENT 1. W/C, 2 MONTHS LOW BACK PAT DONE HISTORY OF PRESENT ILLNESS HISTORY OF PRESENT ILLNESS: PAIN THE PATIENT DESCRIBES THE PAIN... 49-YEAR-OLD MALE IN FOR WORKER'S COMP. CHRONIC PAIN FOLLOW-UP. HE RATES HIS PAIN CURRENTLY AT A 6 OUT OF 10 AND DESCRIBES IT ACHING AND SHOOTING. PATIENT HAD AN LESI PERFORMED IN MAY OF THIS YEAR AND ADMITS TO RELIEF OF SYMPTOMS FOR APPROXIMATELY 2 MONTHS. PATIENT WOULD LIKE TO HAVE A REPEAT PROCEDURE WITH THE GOALS OF INCREASED FUNCTIONALITY AND A DECREASE IN PAIN. THE PATIENT WAS HURT IN A WORK RELATED INJURY ON 01/24/2010 WHILE WORKING AT [employer] WHEN A TRUCK WAS MOVING AND HE TRIED TO STOP IT FROM HITTING A CAR CAUSING HIM TO INJURE HIS BACK. THE PATIENT SAYS THAT THE PAIN STARTS IN HIS LOW BACK AND RADIATES DOWN INTO BOTH LEGS. THE PATIENT SAYS THAT HE HAS DIFFICULTY LIFTING DUE TO THIS PAIN. THE PATIENT STATES THAT MEDICATION, PHYSICAL THERAPY, AND INJECTION THERAPY HAVE HELPFUL IN THE PAST. FALL RISK SCREENING: SCREENING :NO FALLS REPORTED IN THE LAST YEAR PAST MEDICAL HISTORY LOW BACK PAIN ENVIRONMENTAL ALLERGIES ALLERGIES POISON FRANTZ: RASH - ALLERGY SURGICAL HISTORY COLONOSCOPY FAMILY HISTORY FATHER: , DIAGNOSED WITH DIABETES, HYPERTENSION MOTHER: ALIVE, DIABETES, HYPERTENSION SIBLINGS: HYPERTENSION 2 BROTHER(S) . DAD , PARKINSON'S DISEASE. SOCIAL HISTORY GENERAL: TOBACCO USE ARE YOU A:NONSMOKER LATEX QUESTIONNAIRE LATEX ALLERGY : HAVE YOU EVER DEVELOPED ANY TYPE OF REACTION AFTER HANDLING LATEX PRODUCTS SUCH RUBBER GLOVES, CONDOMS, DIAPHRAGMS, BALLOONS, SOCKS, OR UNDERWEAR?NO LATEX ALLERGY : HAVE YOU EVER DEVELOPED ANY TYPE OF REACTION DURING OR AFTER DENTAL APPOINTMENT, VAGINAL/RECTAL EXAMINATION, SURGICAL PROCEDURE, OR ANY OTHER EXPOSURE?NO DATE ASKED : 06/02/2019 LATEX RISK : HAVE YOU EVER HAD ANY DIFFICULTY BREATHING OR HIVES AFTER EATING OR HANDLING ANY FRUITS, OR VEGETABLES; SUCH KIWI, BANANAS, STONE FRUITS, OR CHESTNUTSNO LATEX RISK : DO YOU HAVE A PREVIOUS PERSONAL HISTORY OF MORE THAN NINE SURGERIES, SPINA BIFIDA, OR REPEATED CATHERIZATIONS? NO LATEX RISK : ARE YOU FREQUENTLY EXPOSED TO LATEX PRODUCTS IN YOUR OCCUPATION?YES ALCOHOL SCREENING DID YOU HAVE A DRINK CONTAINING ALCOHOL IN THE PAST YEAR?NO POINTS0 INTERPRETATIONNEGATIVE RECREATIONAL DRUG USE DRUG USE?NO CAFFEINE CAFFEINE USE?NO HIV / HEP-C SCREENING HIV TEST OFFERED TO PATIENT:YES DATE OFFERED:08/24/2016 TEST ACCEPTED:NO HEP-C TEST OFFERED TO PATIENT:NO REASON:PATIENT DECLINED CONFUCIANISM [id number] NONE LANGUAGE LANGUAGES SPOKEN:TELUGU EDUCATION LEVEL OF EDUCATION:HIGH SCHOOL LEARNING BARRIERS / SPECIAL NEEDS BARRIERS TO LEARNING?NO HEARING IMPAIRED?NO VISION IMPAIRED?NO COGNITIVELY IMPAIRED?NO READINESS TO LEARN?YES LEARNING PREFERENCES?NO LEARNING CAPABILITIES PRESENT?YES EMOTIONAL BARRIERS?NO SPECIAL DEVICES?NO TURPENTINER NEEDED?NO DOMESTIC VIOLENCE DO YOU FEEL SAFE IN YOUR ENVIRONMENT?YES PAIN CLINIC PFS, CLERGY, PUBLIC HEALTH REFERRALS HAS THE PATIENT BEEN EDUCATED REGARDING HIS/HER PLAN OF CARE?YES HAS THE PATIENT BEEN EDUCATED REGARDING PAIN, THE RISK FOR PAIN, THE IMPORTANCE OF EFFECTIVE PAIN MANAGEMENT, AND THE PAIN ASSESSMENT PROCESS?YES ADVANCE DIRECTIVE ADVANCE DIRECTIVE DISCUSSED WITH PATIENT:NO 09/10/19 PT DOES NOT HAVE ANY ADVANCED DIRECTIVES AND HE DECLINES INFORMATION ON HCP AT THIS TIME. JS REVIEWED WITH PT 05/02/18 1115 LAS REVIEWED WITH PATIENT 06/29/2019 0913 JS. HOSPITALIZATION/MAJOR DIAGNOSTIC PROCEDURE NO HOSPITALIZATION HISTORY. REVIEW OF SYSTEMS REVIEWED BY: PROVIDER: SONNY BAUER . CONSTITUTIONAL: ANY CHANGE IN YOUR MEDICAL CONDITION? NO . CHILLS NO . FEVER NO . INFECTION: DO YOU HAVE NEW INFECTIONS? NO . DO YOU HAVE HISTORY OF MRSA? NO . MUSCULOSKELETAL: ANY NEW PATTERNS OF PAIN OR NUMBNESS? 12/06 BACK . GASTROENTEROLOGY: ANY NEW CHANGE IN BOWEL CONTROL? NO . GENITOURINARY: ANY NEW CHANGE IN BLADDER CONTROL? NO . IS THERE A CHANCE YOU COULD BE ? NO . HEMATOLOGY/LYMPH: DO YOU TAKE ANY BLOOD THINNERS? (FOR EXAMPLE- COUMADIN, PLAVIX, AGGRENOX, PLATEL, PRADAXA, OR XARELTO) NO . WHEN WAS YOUR LAST DOSE? DATE: TIME: . NEUROLOGY: HAVE YOU FALLEN IN THE PAST 12 MONTHS? NO . ANY NEW EXTREMITY NUMBNESS OR WEAKNESS? NO . CARDIOLOGY: DO YOU HAVE A PACEMAKER OR DEFIBRILLATOR? NO . RESPIRATORY: HAVE YOU BEEN SICK IN THE PAST WEEK? NO . FEVER NO . FLU LIKE SYMPTOMS? NO . COUGH NO . INTEGUMENTARY: DO YOU HAVE ANY RASHES OR OPEN SORES? NO . ALLERGIC/IMMUNO: ARE YOU ALLERGIC TO IV DYE? NO . ANY NEW ALLERGIES? NO . PSYCHIATRIC: DO YOU HAVE THOUGHTS OF HURTING YOURSELF OR SOMEONE ELSE? NO . ARE YOU ABUSED, NEGLECTED, OR IN AN UNSAFE ENVIRONMENT? NO . ENDOCRINOLOGY: ARE YOU DIABETIC? NO . OTHER: DO YOU NEED ANY PRESCRIPTIONS? NO . IF YES, PLEASE LIST: ____ . ANY NEW PROBLEMS WITH YOUR MEDICATIONS? NO . WHEN DID YOU LAST EAT? ____ . WHEN DID YOU LAST DRINK? ____ . WHAT DID YOU LAST DRINK? ____ . NAME OF PERSON DRIVING YOU HOME? ____ . DO YOU HAVE ANY OTHER QUESTIONS OR CONCERNS NO . VITAL SIGNS WT 202.8 LBS, HT 67 IN, BMI 31.76 INDEX, BP 134/73 MM HG, HR 80 /MIN, RR 18 /MIN, TEMP 97.9 F, OXYGEN SAT % 98%, NA INITIALS AW 0852, REVIEWED BY: VANGIE. EXAMINATION GENERAL EXAMINATION: GENERALNO ACUTE DISTRESS, WELL NOURISHED AND HYDRATED. PSYCHAPPROPRIATE MOOD AND AFFECT . LUNGS:CLEAR TO AUSCULTATION BILATERALLY, NO WHEEZES, RHONCHI, RALES. HEART:NO MURMURS, REGULAR RATE AND RHYTHM. BACK:PATIENT DENIES TENDERNESS ALONG LUMBAR SPINE, SURROUNDING SKIN SHOWS NO ERYTHEMA, ECCHYMOSIS, INCREASED WARMTH, AND/OR SKIN ERUPTIONS NOTED. POSITIVE MODIFIED SLR LEFT SIDE. . MUSCULOSKELETAL:EQUAL STRENGTH OF THE LOWER EXTREMITIES BILATERALLY . ASSESSMENTS INTERVERTEBRAL DISC DISORDERS WITH RADICULOPATHY, LUMBOSACRAL REGION - M51.17 (PRIMARY) TREATMENT INTERVERTEBRAL DISC DISORDERS WITH RADICULOPATHY, LUMBOSACRAL REGION NOTES: LESI L5-S1 LESI INFO PRINTED. CLINICAL NOTES: 49-YEAR-OLD MALE IN FOR WORKER'S COMP. CHRONIC PAIN FOLLOW-UP. GIVEN PRESENTING SYMPTOMS RECOMMENDED LESI L5-S1 WITH POST PROCEDURAL FOLLOW-UP. PATIENT HAS EXPRESSED UNDERSTANDING OF AND WAS IN AGREEMENT WITH TREATMENT PLAN. GIVEN TIME TO ASK QUESTIONS AND EXPRESS CONCERNS. PROCEDURES PN WORKMANS' COMP OPINION IN YOUR OPINION, WAS THE INCIDENT THAT THE PATIENT DESCRIBED THE COMPETENT MEDICAL CAUSE OF THIS INJURY/ILLNESS? YES ARE THE PATIENT'S COMPLAINTS CONSISTENT WITH HIS/HER HISTORY OF THE INJURY/ILLNESS? YES IS THE PATIENT'S HISTORY OF THE INJURY/ILLNESS CONSISTENT WITH YOUR OBJECTIVE FINDING? YES WHAT IS THE PERCENTAGE OF TEMPORARY IMPAIRMENT? MODERATE TO MARKED = 66.7% IS THE PATIENT WORKING? YES DOCTOR ON SITE: BARAK DE LA FUENTE MD PROCEDURE CODES FA211 ESTABILISHED PATIENT [facility] CHARGE DISPOSITION & COMMUNICATION FOLLOW UP POST PROCEDURE (REASON: LESI L5-S1) ELECTRONICALLY SIGNED BY VIRGEN RAMIREZ ON 09/14/2019 AT 08:15 AM EDT DISCLAIMER : THIS IS A VISIT SUMMARY EXTRACTED FROM THE [employer] CHART. IT IS NOT A COPY OF THE [employer] PROGRESS NOTE. ANTHONY
== END ==
LOC: M PAIN 08:45
PROVIDERS: ATTEND Family Medicine
DX: M51.17 Intervertebral disc disorders with radiculopathy, lumbosacral region (principal)

== ENCOUNTER → 2019-10-25 | Outpatient (CLI) | payer OTHER | LOC: M LABSMTC 09:53 | PROVIDERS: ATTEND Anesthesiology | DX: Z01.818 Encounter for other preprocedural examination (principal); Z11.59 Encounter for screening for other viral diseases | CPT/HCPCS: C9803; U0003 ==

== ENCOUNTER → 2019-10-28 | Outpatient (CLI) | payer OTHER ==
[~2019-10-28] MED LIST changes: +ISOVUE-M 300 61% 15ML VIAL As Ordered ONE; +LIDOCAINE 1% SDV 30ML VIAL As Ordered ONE; +diazePAM 5 MG TAB As Ordered ONE; +methylPREDNISolone SUSP 40 MG/ML (DEPO-medrol) VIAL (J1030) As Ordered ONE
--- NOTE | 2019-10-28 14:18 | REP ---
Partial lumbar spine series: Two views . History: Injection procedure for pain. 16 seconds of fluoroscopy time is reported. Findings: A sequence of two fluoroscopically obtained last image hold procedural spot radiographs of the lumbar spine document needle position and contrast injection associated with injection procedure. Electronically Signed by Varun Solis MD 10/28/2019 02:10 P
--- NOTE | 2019-11-04 00:43 | ECWPNPC ---
PATIENT NAME: AUBRIE CRONIN : 1970 GENDER: MALE VISIT DATE: 10/28/2019 DISCHARGE DATE: 10/28/19 1404 VISIT LOCKED DATE TIME: PHYSICIAN: BARAK HYATT MD RESOURCE: BARAK HYATT MD REASON FOR APPOINTMENT 1. W/C LESI L5-S1 PAT DONE HISTORY OF PRESENT ILLNESS GENERAL: -. FALL RISK SCREENING: SCREENING :NO FALLS REPORTED IN THE LAST YEAR PAIN SCREENING: PATIENT HAS A COMPLAINT OF ACUTE OR CHRONIC PAIN :YES LOCATION OF PAIN:LOW BACK, LEG(S) INTENSITY OF PAIN (SCALE OF 1 TO 10):6 WHAT DOES YOUR PAIN FEEL LIKE:ACHING, CONTINOUS, SHARP, STABBING, SHOOTING NURSING NOTE: -. PAIN CENTER INTAKE QUESTIONS: DO YOU HAVE A HISTORY OF MRSA? :NO DO YOU TAKE A BLOOD THINNERS? :NO DO YOU HAVE ANY BLEEDING DISORDERS? :NO ANY NEW NUMBNESS OR WEAKNESS IN YOUR LEGS OR ARMS? :NO ANY PACEMAKER,DEFIBRILLATOR, OR DORSAL COLUMN STIMULATOR? :NO DO YOU HAVE ANY RASHES OR OPEN SORES? :NO ARE YOU ALLERGIC TO IV DYE? :NO ARE YOU DIABETIC? :NO ANY NEW PROBLEMS WITH YOUR MEDICATIONS? :NO HAVE YOU RECEIVED A VACCINE IN THE PAST 30 DAYS? :NO DO YOU PLAN TO RECEIVE A VACCINE IN THE NEXT 21 DAYS? :NO DO YOU TAKE ANY IMMUNOSUPPRESSIVE MEDICATIONS? :NO ANY HISTORY OF SEIZURES? :NO ANY HISTORY OF CARDIAC ISSUES OR EVENTS? :NO DO YOU HAVE SLEEP APNEA? :NO ANY RECENT HEAD INJURY? :NO DO YOU HAVE ANY NEW INFECTIONS? :NO IS THERE A CHANCE YOU COULD BE ? :NO ARE YOU BREAST FEEDING? :NO WHEN DID YOU LAST EAT? : -614 TODAY WHEN DID YOU LAST DRINK? : -614 TODAY WHAT DID YOU LAST DRINK? : -MILK AND ORANGE JUICE NAME OF PERSON DRIVING YOU HOME? : -RONALD WILDER DO YOU HAVE ANY OTHER QUESTIONS OR CONCERNS? : - CURRENT MEDICATIONS TAKING MULTIVITAMINS CAPSULE 1 CAP ORALLY DAILY, NOTES: 10/28/19 AM TAKING CETIRIZINE HCL 10 MG TABLET 1 TABLET ORALLY ONCE A DAY, NOTES: 10/27/19 TAKING ALEVE 220 MG TABLET 1-2 TABS ORALLY DAILY, NOTES: 10/28/19 AM TAKING BENADRYL ALLERGY 25 MG TABLET 1 TABLET AT BEDTIME NEEDED ORALLY ONCE A DAY, NOTES: 10/28/19 AM MEDICATION LIST REVIEWED AND RECONCILED WITH THE PATIENT PAST MEDICAL HISTORY LOW BACK PAIN ENVIRONMENTAL ALLERGIES ALLERGIES POISON FRANTZ: RASH - ALLERGY ENVIRONMENTAL: CONGESTION SNEEZING - ALLERGY SURGICAL HISTORY COLONOSCOPY FAMILY HISTORY FATHER: , DIAGNOSED WITH HYPERTENSION, DIABETES MOTHER: ALIVE, HYPERTENSION, DIABETES SIBLINGS: HYPERTENSION 2 BROTHER(S) . DAD , PARKINSON'S DISEASE. SOCIAL HISTORY GENERAL: TOBACCO USE ARE YOU A:NONSMOKER LATEX QUESTIONNAIRE LATEX ALLERGY : HAVE YOU EVER DEVELOPED ANY TYPE OF REACTION AFTER HANDLING LATEX PRODUCTS SUCH RUBBER GLOVES, CONDOMS, DIAPHRAGMS, BALLOONS, SOCKS, OR UNDERWEAR?NO LATEX ALLERGY : HAVE YOU EVER DEVELOPED ANY TYPE OF REACTION DURING OR AFTER DENTAL APPOINTMENT, VAGINAL/RECTAL EXAMINATION, SURGICAL PROCEDURE, OR ANY OTHER EXPOSURE?NO LATEX RISK : HAVE YOU EVER HAD ANY DIFFICULTY BREATHING OR HIVES AFTER EATING OR HANDLING ANY FRUITS, OR VEGETABLES; SUCH KIWI, BANANAS, STONE FRUITS, OR CHESTNUTSNO LATEX RISK : DO YOU HAVE A PREVIOUS PERSONAL HISTORY OF MORE THAN NINE SURGERIES, SPINA BIFIDA, OR REPEATED CATHERIZATIONS? NO LATEX RISK : ARE YOU FREQUENTLY EXPOSED TO LATEX PRODUCTS IN YOUR OCCUPATION?YES DATE ASKED : 10/27/2019 ALCOHOL SCREENING DID YOU HAVE A DRINK CONTAINING ALCOHOL IN THE PAST YEAR?NO POINTS0 INTERPRETATIONNEGATIVE RECREATIONAL DRUG USE DRUG USE?NO CAFFEINE CAFFEINE USE?NO HIV / HEP-C SCREENING HIV TEST OFFERED TO PATIENT:YES DATE OFFERED:08/24/2016 TEST ACCEPTED:NO HEP-C TEST OFFERED TO PATIENT:NO REASON:PATIENT DECLINED LATTER DAY [id number] NONE LANGUAGE LANGUAGES SPOKEN:UKRAINIAN EDUCATION LEVEL OF EDUCATION:HIGH SCHOOL LEARNING BARRIERS / SPECIAL NEEDS BARRIERS TO LEARNING?NO HEARING IMPAIRED?NO VISION IMPAIRED?NO COGNITIVELY IMPAIRED?NO READINESS TO LEARN?YES LEARNING PREFERENCES?NO LEARNING CAPABILITIES PRESENT?YES EMOTIONAL BARRIERS?NO SPECIAL DEVICES?NO NIGHT MONITOR NEEDED?NO DOMESTIC VIOLENCE DO YOU FEEL SAFE IN YOUR ENVIRONMENT?YES PAIN CLINIC PFS, CLERGY, PUBLIC HEALTH REFERRALS HAS THE PATIENT BEEN EDUCATED REGARDING HIS/HER PLAN OF CARE?YES HAS THE PATIENT BEEN EDUCATED REGARDING PAIN, THE RISK FOR PAIN, THE IMPORTANCE OF EFFECTIVE PAIN MANAGEMENT, AND THE PAIN ASSESSMENT PROCESS?YES ADVANCE DIRECTIVE ADVANCE DIRECTIVE DISCUSSED WITH PATIENT:NO PT DOES NOT HAVE ANY ADVANCED DIRECTIVES AND HE DECLINES INFORMATION ON HCP AT THIS TIME. HOSPITALIZATION/MAJOR DIAGNOSTIC PROCEDURE NO HOSPITALIZATION HISTORY. VITAL SIGNS WT 200 LBS, HT 67 IN, BMI 31.32 INDEX, BP 141/88 MM HG, HR 68 /MIN, RR 18 /MIN, TEMP 97.7 F, OXYGEN SAT % 99%, SAFE IN ENV? (Y/N) Y, NA INITIALS SC 12:09, REVIEWED BY: EM. EXAMINATION GENERAL EXAMINATION: THE PATIENT IS ALERT, ORIENTED TIMES THREE AND COOPERATIVE. HEART SHOWS REGULAR RHYTHM, NO MURMURS AND NO GALLOPS. LUNGS ARE CLEAR TO AUSCULTATION. ASSESSMENTS INTERVERTEBRAL DISC DISORDERS WITH RADICULOPATHY, LUMBOSACRAL REGION - M51.17 (PRIMARY) TREATMENT INTERVERTEBRAL DISC DISORDERS WITH RADICULOPATHY, LUMBOSACRAL REGION [facility] FLUORO GUIDE SPINE INJECTION (PAIN)[id number] MEDICATION: VALIUM TAB 5MG ORALLY (DIAZEPAM)ADARSH SPEAR RN 10/28/2019 1:12:23 PM > VERIFIED TONI JAMES 10/28/2019 1:13:52 PM > GIVEN [id number] EXP 06/19 PROCEDURES PAIN NURSING RECORD PRE-PROCEDURE IV SITE N/A PROCEDURE IN ROOM 1330, PHYSICIAN IN ROOM 1340, START 1344, FINISH 1349, PHYSICIAN OUT OF ROOM 1352, STEROID DEPOMEDROL, O2 RA, ECG NORMAL SINUS, PATIENT SHIELDED YES, SAFETY STRAP YES, PREP BETADINE, DRESSING TEGADERM LOC: 1. ALERT, ORIENTED RESP: 1. REGULAR, NO DYSPNEA COLOR: 1. PINK VITALS: 1330-123/76, 60 98% 18 KGULLO RN 1345 132/65 60, 99% 18 KGULLO RN 1355 125/78 72 99% 18 KGULLO RN POST PROCEDURE DISCHARGE: POST PAIN PT GIVEN ICE FOR THE RIDE HOME, DRESSING SITE INTACT AT SITE, IV NA, GAIT STEADY, TEACHING COMPLETED, PATIENT ACKNOWLEDGES UNDERSTANDING WENT OVER DC INSTRUCTIONS COMPLETE WITH DIARY, PATIENT DISCHARGED AT 1359 PN WORKMANS' COMP OPINION IN YOUR OPINION, WAS THE INCIDENT THAT THE PATIENT DESCRIBED THE COMPETENT MEDICAL CAUSE OF THIS INJURY/ILLNESS? YES ARE THE PATIENT'S COMPLAINTS CONSISTENT WITH HIS/HER HISTORY OF THE INJURY/ILLNESS? YES IS THE PATIENT'S HISTORY OF THE INJURY/ILLNESS CONSISTENT WITH YOUR OBJECTIVE FINDING? YES WHAT IS THE PERCENTAGE OF TEMPORARY IMPAIRMENT? MODERATE TO MARKED = 66.7% . IS THE PATIENT WORKING? YES DOCTOR ON SITE: BARAK DE LA FUENTE MD PRE PROCEDURE DIAGNOSIS LUMBOSACRAL DISC DISORDER WITH RADICULOPATHY POST PROCEDURE DIAGNOSIS LUMBOSACRAL DISC DISORDER WITH RADICULOPATHY PROCEDURE LUMBAR EPIDURAL STEROID INJECTION UNDER FLUOROSCOPIC GUIDANCE SURGEON DR. BARAK HYATT CODING COMPLIANCE AUDITOR NONE ANESTHESIA LOCAL PRE PROCEDURE NOTE THE PATIENT HAS A HISTORY OF CHRONIC LOW BACK PAIN. I EVALUATED THE PATIENT AND REVIEWED THE CHART. I WENT OVER THE RISKS, ALTERNATIVES, AND BENEFITS ASSOCIATED WITH THIS PROCEDURE. I DISCUSSED THAT THE USE OF STEROIDS MAY CONTRIBUTE TO IMMUNOSUPPRESSION OF THE PATIENT'S BODY AGAINST INFECTIONS SUCH COVID-19. THE PATIENT IS AWARE OF THE POTENTIAL COMPLICATIONS ASSOCIATED WITH THIS VIRUS, INCLUDING, BUT NOT LIMITED TO, . I DISCUSSED THE USE OF DEXAMETHASONE INSTEAD OF DEPO-MEDROL; HOWEVER, THE PATIENT WOULD LIKE TO MOVE FORWARD WITH DEPO-MEDROL. THE PATIENT WOULD LIKE TO PROCEED AND GIVE CONSENT TO PERFORMED THE PROCEDURE. THE PATIENT DENIES UNEXPLAINABLE WEIGHT LOSS, FEVER, CHILLS, OR NEW CHANGES IN URINARY OR BOWEL CONTROL. THE PATIENT IS COVID-19 NEGATIVE DESCRIPTION OF PROCEDURE THE PATIENT WAS BROUGHT TO THE PROCEDURE ROOM AND PLACED IN THE PRONE POSITION. THE LUMBOSACRAL AREA WAS CLEANED WITH BETADINE SOLUTION AND DRAPED ASEPTICALLY. THE PROCEDURE WAS DONE UNDER STERILE CONDITIONS. I CHECKED LATERALITY AND THE LEVEL WHERE THE PROCEDURE WAS GOING TO BE PERFORMED WITH THE PATIENT AND THE SUPPORTING STAFF AT THE MOMENT OF THE TIME OUT IN THE PROCEDURE ROOM. UNDER FLUOROSCOPIC GUIDANCE, THE TARGET POINT WAS SELECTED AT THE INTERLAMINAR LEVEL OF L5-S1. LIDOCAINE WAS USED TO NUMB THE SKIN AND THE SUBCUTANEOUS TISSUE BELOW IT. EPIDURAL TUOHY NEEDLE, 17-GAUGE, WAS ADVANCED UNDER FLUOROSCOPIC GUIDANCE AND FOLLOWING PATIENT FEEDBACK UNTIL THE EPIDURAL SPACE WAS REACHED 7 CM DEEP INTO THE SKIN BY THE LOSS OF RESISTANCE TECHNIQUE. ISOVUE M DYE 30%, 0.25 ML, WAS INJECTED SHOWING ADEQUATE SPREAD OF THE DYE. THEN, A SOLUTION OF 3 ML OF NORMAL SALINE WITH DEPO-MEDROL 80 MG WAS INJECTED SLOWLY FOLLOWING PATIENT FEEDBACK. THERE WAS NO EVIDENCE OF BLOOD, PARESTHESIA OR CEREBROSPINAL FLUID DURING THE PROCEDURE. THE PATIENT WAS SENT TO THE RECOVERY ROOM. THE PATIENT WAS MOVING THE EXTREMITIES AND DOING WELL. THERE WAS NO COMPLICATION DURING THE PROCEDURE. EBL LESS THAN 5 ML. FLUOROSCOPY TIME WAS 16 SECONDS POST PROCEDURE NOTE THE PATIENT WILL BE SEEN IN A FOLLOW UP IN THE NEXT FEW WEEKS. I AM LOOKING FOR LONG LASTING RELIEF FOR THE PATIENT WITH THIS INTERVENTION. INSTRUCTIONS WERE GIVEN, QUESTIONS WERE ANSWERED, AND THE PATIENT EXPRESSED UNDERSTANDING AND AGREES WITH THE PLAN. THE PATIENT IS AWARE TO STAY HOME FOR THE NEXT WEEK, IF POSSIBLE, DUE TO COVID-19. I, JIMENEZ TRUONG, DOCUMENTED THE ABOVE INFORMATION ACTING A SCRIBE FOR DR. HYATT. I HAVE REVIEWED THE ABOVE DOCUMENT, WRITTEN BY JIMENEZ TRUONG, AUTOMOTIVE QUALITY MANAGER, AND I VERIFY THAT IT IS ACCURATE PROCEDURE CODES 42656 LUMBAR/SACRAL W/ IMAGING DISPOSITION & COMMUNICATION FOLLOW UP F/UP WITH INORGANIC CHEMICAL TECHNICIAN (REASON: W/C LESI L5-S1) ELECTRONICALLY SIGNED BY BARAK HYATT MD, MD ON 11/03/2019 AT 06:34 PM EDT DISCLAIMER : THIS IS A VISIT SUMMARY EXTRACTED FROM THE [employer] CHART. IT IS NOT A COPY OF THE [employer] PROGRESS NOTE. MINDID
== END ==
LOC: M PAIN 12:15
PROVIDERS: ATTEND Anesthesiology
DX: M51.17 Intervertebral disc disorders with radiculopathy, lumbosacral region (principal)
CPT/HCPCS: 62323; J1030; Q9967

== ENCOUNTER → 2019-11-17 | Outpatient (CLI) | payer OTHER ==
[~2019-11-17] MED LIST changes: -ISOVUE-M 300 61% 15ML VIAL As Ordered ONE; -LIDOCAINE 1% SDV 30ML VIAL As Ordered ONE; -diazePAM 5 MG TAB As Ordered ONE; -methylPREDNISolone SUSP 40 MG/ML (DEPO-medrol) VIAL (J1030) As Ordered ONE
--- NOTE | 2019-11-19 01:35 | ECWPNPC ---
PATIENT NAME: AUBRIE CRONIN : 1970 GENDER: MALE VISIT DATE: 11/17/2019 DISCHARGE DATE: 11/17/19 1037 VISIT LOCKED DATE TIME: PHYSICIAN: DEXTER RAMSEY RESOURCE: DEXTER RAMSEY REASON FOR APPOINTMENT 1. W/C LESI L5-S1 HISTORY OF PRESENT ILLNESS GENERAL: - 49-YEAR-OLD MALE IN FOR WORKER'S COMP. POST LESI FOLLOW-UP. PATIENT FEELS THE PROCEDURE WAS HELPFUL RATING HIS PAIN PREPROCEDURE AT A 6 OUT OF 10 AND POSTPROCEDURE AT A 3-4 OUT OF 10. HE FURTHER STATES THE PROCEDURE CONTINUES TO HELP HIM TODAY. HE RATES HIS PAIN CURRENTLY AT A 4 OUT OF 10 AND DESCRIBES IT ACHING. PATIENT DOES ADMIT TO INCREASED FUNCTIONALITY AND DECREASED PAIN RESULTS OF SAID PROCEDURE. 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 THE PATIENT SAYS THAT THE PAIN STARTS IN HIS LOW BACK AND RADIATES DOWN INTO BOTH LEGS. THE PATIENT SAYS THAT HE HAS DIFFICULTY LIFTING DUE TO THIS PAIN. THE PATIENT STATES THAT MEDICATION, PHYSICAL THERAPY, AND INJECTION THERAPY HAVE HELPFUL IN THE PAST. FALL RISK SCREENING: SCREENING :NO FALLS REPORTED IN THE LAST YEAR PAIN SCREENING: PATIENT HAS A COMPLAINT OF ACUTE OR CHRONIC PAIN :YES PRE-PROCEDURE10/06, [id number], TODAY-08/06 LOCATION OF PAIN:LOW BACK INTENSITY OF PAIN (SCALE OF 1 TO 10):4 WHAT DOES YOUR PAIN FEEL LIKE:ACHING DURATION:ONLY WITH SPECIFIC ACTIVITIES, INTERMITTENT PAIN IS INCREASED BY:ACTIVITIES PAIN IS DECREASED BY:USE OF PAIN MEDICATIONS PAIN HAS INTERFERED WITH THE FOLLOWING:MOOD, HOUSEWORK, RELATIONSHIP WITH OTHERS, ENJOYMENT OF LIFE PLAN/GOALS/TREATMENT/INTERVENTION/FOLLOW UP:SEE PLAN NURSING NOTE: PT. STATED THAT PROCEDURE DID HELP. PT. STATED PAIN WAS ACHING AND CONTINOUS BEFORE THE PROCEDURE. -. PAIN CENTER INTAKE QUESTIONS: DO YOU HAVE A HISTORY OF MRSA? :NO DO YOU TAKE A BLOOD THINNERS? :NO DO YOU HAVE ANY BLEEDING DISORDERS? :NO ANY NEW NUMBNESS OR WEAKNESS IN YOUR LEGS OR ARMS? :NO ANY PACEMAKER,DEFIBRILLATOR, OR DORSAL COLUMN STIMULATOR? :NO DO YOU HAVE ANY RASHES OR OPEN SORES? :NO ARE YOU ALLERGIC TO IV DYE? :NO ARE YOU DIABETIC? :NO ANY NEW PROBLEMS WITH YOUR MEDICATIONS? :NO HAVE YOU RECEIVED A VACCINE IN THE PAST 30 DAYS? :NO DO YOU PLAN TO RECEIVE A VACCINE IN THE NEXT 21 DAYS? :NO DO YOU NEED ANY PRESCRIPTION? :NO DO YOU TAKE ANY IMMUNOSUPPRESSIVE MEDICATIONS? :NO IS THERE A CHANCE YOU COULD BE ? :NO ARE YOU BREAST FEEDING? :NO CURRENT MEDICATIONS TAKING MULTIVITAMINS CAPSULE 1 CAP ORALLY DAILY, NOTES: 10/28/19 AM TAKING CETIRIZINE HCL 10 MG TABLET 1 TABLET ORALLY ONCE A DAY, NOTES: 10/27/19 TAKING ALEVE 220 MG TABLET 1-2 TABS ORALLY DAILY, NOTES: 10/28/19 AM TAKING BENADRYL ALLERGY 25 MG TABLET 1 TABLET AT BEDTIME NEEDED ORALLY ONCE A DAY, NOTES: 10/28/19 AM MEDICATION LIST REVIEWED AND RECONCILED WITH THE PATIENT PAST MEDICAL HISTORY LOW BACK PAIN ENVIRONMENTAL ALLERGIES ALLERGIES POISON FRANTZ: RASH - ALLERGY ENVIRONMENTAL: CONGESTION SNEEZING - ALLERGY SURGICAL HISTORY COLONOSCOPY FAMILY HISTORY FATHER: , DIAGNOSED WITH HYPERTENSION, DIABETES MOTHER: ALIVE, HYPERTENSION, DIABETES SIBLINGS: HYPERTENSION 2 BROTHER(S) . DAD , PARKINSON'S DISEASE. SOCIAL HISTORY GENERAL: TOBACCO USE ARE YOU A:NONSMOKER LATEX QUESTIONNAIRE LATEX ALLERGY : HAVE YOU EVER DEVELOPED ANY TYPE OF REACTION AFTER HANDLING LATEX PRODUCTS SUCH RUBBER GLOVES, CONDOMS, DIAPHRAGMS, BALLOONS, SOCKS, OR UNDERWEAR?NO LATEX ALLERGY : HAVE YOU EVER DEVELOPED ANY TYPE OF REACTION DURING OR AFTER DENTAL APPOINTMENT, VAGINAL/RECTAL EXAMINATION, SURGICAL PROCEDURE, OR ANY OTHER EXPOSURE?NO LATEX RISK : HAVE YOU EVER HAD ANY DIFFICULTY BREATHING OR HIVES AFTER EATING OR HANDLING ANY FRUITS, OR VEGETABLES; SUCH KIWI, BANANAS, STONE FRUITS, OR CHESTNUTSNO LATEX RISK : DO YOU HAVE A PREVIOUS PERSONAL HISTORY OF MORE THAN NINE SURGERIES, SPINA BIFIDA, OR REPEATED CATHERIZATIONS? NO LATEX RISK : ARE YOU FREQUENTLY EXPOSED TO LATEX PRODUCTS IN YOUR OCCUPATION?YES DATE ASKED : 11/17/2019 ALCOHOL SCREENING DID YOU HAVE A DRINK CONTAINING ALCOHOL IN THE PAST YEAR?NO POINTS0 INTERPRETATIONNEGATIVE RECREATIONAL DRUG USE DRUG USE?NO CAFFEINE CAFFEINE USE?NO HIV / HEP-C SCREENING HIV TEST OFFERED TO PATIENT:YES DATE OFFERED:08/24/2016 TEST ACCEPTED:NO HEP-C TEST OFFERED TO PATIENT:NO REASON:PATIENT DECLINED CONFUCIANIST [id number] NONE LANGUAGE LANGUAGES SPOKEN:KENY[place] EDUCATION LEVEL OF EDUCATION:HIGH SCHOOL LEARNING BARRIERS / SPECIAL NEEDS BARRIERS TO LEARNING?NO HEARING IMPAIRED?NO VISION IMPAIRED?NO COGNITIVELY IMPAIRED?NO READINESS TO LEARN?YES LEARNING PREFERENCES?NO LEARNING CAPABILITIES PRESENT?YES EMOTIONAL BARRIERS?NO SPECIAL DEVICES?NO VISITOR SERVICES TECHNICIAN NEEDED?NO DOMESTIC VIOLENCE DO YOU FEEL SAFE IN YOUR ENVIRONMENT?YES PAIN CLINIC PFS, CLERGY, PUBLIC HEALTH REFERRALS HAS THE PATIENT BEEN EDUCATED REGARDING HIS/HER PLAN OF CARE?YES HAS THE PATIENT BEEN EDUCATED REGARDING PAIN, THE RISK FOR PAIN, THE IMPORTANCE OF EFFECTIVE PAIN MANAGEMENT, AND THE PAIN ASSESSMENT PROCESS?YES ADVANCE DIRECTIVE ADVANCE DIRECTIVE DISCUSSED WITH PATIENT:NO PT DOES NOT HAVE ANY ADVANCED DIRECTIVES AND HE DECLINES INFORMATION ON HCP AT THIS TIME. HOSPITALIZATION/MAJOR DIAGNOSTIC PROCEDURE NO HOSPITALIZATION HISTORY. REVIEW OF SYSTEMS CONSTITUTIONAL: ANY RECENT FEVER NO . CHILLS NO . WEIGHT CHANGE OF UNKNOWN REASONS NO . GASTROENTEROLOGY: NEW UNEXPLAINABLE CHANGES IN BOWEL CONTROL NO . CONSTIPATION NO . GENITOURINARY: ANY NEW CHANGE IN BLADDER CONTROL? NO . NEUROLOGY: NEW ONSET DIZZINESS OR NEUROLOGICAL CHANGES NOT MENTIONED NO . NEW NUMBNESS OR PAIN PATTERNS NOT MENTIONED AND PERTINENT TO TODAY'S VISIT NO . CARDIOLOGY: NEW CHEST PRESSURE NO . NEW CHEST PAIN NO . RESPIRATORY: UNEXPLAINABLE COUGH NO . NEW SHORTNESS OF BREATH NO . VITAL SIGNS WT 199.2 LBS, HT 67 IN, BMI 31.20 INDEX, BP 130/82 MM HG, HR 65 /MIN, RR 18 /MIN, TEMP 97.9 F, OXYGEN SAT % 100%, SAFE IN ENV? (Y/N) Y, NA INITIALS HI 10[facility] GENERAL EXAMINATION: GENERALNO ACUTE DISTRESS, WELL NOURISHED AND HYDRATED. PSYCHAPPROPRIATE MOOD AND AFFECT . LUNGS:CLEAR TO AUSCULTATION BILATERALLY, NO WHEEZES, RHONCHI, RALES. HEART:NO MURMURS, REGULAR RATE AND RHYTHM. ASSESSMENTS INTERVERTEBRAL DISC DISORDERS WITH RADICULOPATHY, LUMBOSACRAL REGION - M51.17 (PRIMARY) TREATMENT INTERVERTEBRAL DISC DISORDERS WITH RADICULOPATHY, LUMBOSACRAL REGION CLINICAL NOTES: WITH 9-YEAR-OLD MALE IN FOR POST LESI FOLLOW-UP. GIVEN PRESENTING SYMPTOMS RECOMMEND FOLLOW-UP IN CLINIC IN 2 MONTHS. PATIENT HAS EXPRESSED UNDERSTANDING OF AND WAS IN AGREEMENT WITH TREATMENT PLAN. GIVEN TIME TO ASK QUESTIONS AND EXPRESS CONCERNS. PROCEDURES PN WORKMANS' COMP OPINION IN YOUR OPINION, WAS THE INCIDENT THAT THE PATIENT DESCRIBED THE COMPETENT MEDICAL CAUSE OF THIS INJURY/ILLNESS? YES ARE THE PATIENT'S COMPLAINTS CONSISTENT WITH HIS/HER HISTORY OF THE INJURY/ILLNESS? YES IS THE PATIENT'S HISTORY OF THE INJURY/ILLNESS CONSISTENT WITH YOUR OBJECTIVE FINDING? YES WHAT IS THE PERCENTAGE OF TEMPORARY IMPAIRMENT? MODERATE TO MARKED = 66.7% IS THE PATIENT WORKING? YES DOCTOR ON SITE: BARAK DE LA FUENTE MD PROCEDURE CODES FA211 ESTABILISHED PATIENT [facility] CHARGE DISPOSITION & COMMUNICATION FOLLOW UP 2 MONTHS (REASON: BACK PAIN WORKER'S COMP.) ELECTRONICALLY SIGNED BY VIRGEN RAMIREZ ON 11/18/2019 AT 08:56 AM EDT DISCLAIMER : THIS IS A VISIT SUMMARY EXTRACTED FROM THE [employer] CHART. IT IS NOT A COPY OF THE [employer] PROGRESS NOTE. ANTHONY
== END ==
LOC: M PAIN 10:15
PROVIDERS: ATTEND Family Medicine
DX: M51.17 Intervertebral disc disorders with radiculopathy, lumbosacral region (principal)

== ENCOUNTER → 2020-01-18 | Outpatient (CLI) | payer OTHER | LOC: M PAIN 09:08 | PROVIDERS: ATTEND Family Medicine | DX: M51.17 Intervertebral disc disorders with radiculopathy, lumbosacral region (principal) ==

== ENCOUNTER → 2020-02-18 | Outpatient (CLI) | payer OTHER ==
--- NOTE | 2020-02-22 12:41 | ECWPNPC ---
PATIENT NAME: AUBRIE CRONIN : 1970 GENDER: MALE VISIT DATE: 02/18/2020 DISCHARGE DATE: 02/18/20937 VISIT LOCKED DATE TIME: PHYSICIAN: DEXTER RAMSEY RESOURCE: DEXTER RAMSEY REASON FOR APPOINTMENT 1. BACK PAIN HISTORY OF PRESENT ILLNESS GENERAL: - 49-YEAR-OLD MALE IN FOR WORKER'S COMP. CHRONIC PAIN FOLLOW-UP. AT LAST CLINIC VISIT PATIENT WAS STARTED ON GABAPENTIN AND HE ADMITS TODAY THAT HE HAS DISCONTINUED USE IT MADE HIM SLEEPY. HE RATES HIS PAIN CURRENTLY AT A 5 OUT OF 10 AND DESCRIBES IT ACHING. THE PATIENT WAS HURT IN A WORK RELATED INJURY ON 01/24/2010 WHILE WORKING AT [employer] WHEN A TRUCK WAS MOVING AND HE TRIED TO STOP IT FROM HITTING A CAR CAUSING HIM TO INJURE HIS BACK. THE PATIENT SAYS THAT THE PAIN STARTS IN HIS LOW BACK AND RADIATES DOWN INTO BOTH LEGS. THE PATIENT SAYS THAT HE HAS DIFFICULTY LIFTING DUE TO THIS PAIN. THE PATIENT STATES THAT MEDICATION, PHYSICAL THERAPY, AND INJECTION THERAPY HAVE HELPFUL IN THE PAST. FALL RISK SCREENING: SCREENING :NO FALLS REPORTED IN THE LAST YEAR PAIN SCREENING: PATIENT HAS A COMPLAINT OF ACUTE OR CHRONIC PAIN :YES LOCATION OF PAIN:LOW BACK INTENSITY OF PAIN (SCALE OF 1 TO 10):5 WHAT DOES YOUR PAIN FEEL LIKE:ACHING DURATION:CONSTANT PAIN IS INCREASED BY:PROLONGED STANDING, OTHERS SAUATTING INCREASES PAIN. PAIN IS DECREASED BY:OTHERS PATIENT STATES NOTHING RELIEVES HIS PAIN AT THIS TIME. NURSING NOTE: -. PAIN CENTER INTAKE QUESTIONS: DO YOU HAVE A HISTORY OF MRSA? :NO DO YOU TAKE A BLOOD THINNERS? :NO DO YOU HAVE ANY BLEEDING DISORDERS? :NO ANY NEW NUMBNESS OR WEAKNESS IN YOUR LEGS OR ARMS? :NO ANY PACEMAKER,DEFIBRILLATOR, OR DORSAL COLUMN STIMULATOR? :NO DO YOU HAVE ANY RASHES OR OPEN SORES? :NO ARE YOU ALLERGIC TO IV DYE? :NO ARE YOU DIABETIC? :NO ANY NEW PROBLEMS WITH YOUR MEDICATIONS? :YES PATIENT STATES HE STOPPED TAKING THE GABAPENTIN THAT WAS STARTED 01/17 VISIT. HE STATES IT MADE HIM VERY TIRED. HAVE YOU RECEIVED A VACCINE IN THE PAST 30 DAYS? :YES PATIENT HAD A FLU SHOT 3 WEEKS AGO. DO YOU PLAN TO RECEIVE A VACCINE IN THE NEXT 21 DAYS? :NO DO YOU NEED ANY PRESCRIPTION? :NO DO YOU TAKE ANY IMMUNOSUPPRESSIVE MEDICATIONS? :NO IS THERE A CHANCE YOU COULD BE ? :NO ARE YOU BREAST FEEDING? :NO CURRENT MEDICATIONS TAKING MULTIVITAMINS CAPSULE 1 CAP ORALLY DAILY, NOTES: 10/28/19 AM TAKING CETIRIZINE HCL 10 MG TABLET 1 TABLET ORALLY ONCE A DAY, NOTES: 10/27/19 TAKING ALEVE 220 MG TABLET 1-2 TABS ORALLY DAILY, NOTES: 10/28/19 AM TAKING BENADRYL ALLERGY 25 MG TABLET 1 TABLET AT BEDTIME NEEDED ORALLY ONCE A DAY, NOTES: 10/28/19 AM MEDICATION LIST REVIEWED AND RECONCILED WITH THE PATIENT PAST MEDICAL HISTORY LOW BACK PAIN ENVIRONMENTAL ALLERGIES ALLERGIES POISON FRANTZ: RASH - ALLERGY ENVIRONMENTAL: CONGESTION SNEEZING - ALLERGY SURGICAL HISTORY COLONOSCOPY FAMILY HISTORY FATHER: , DIAGNOSED WITH HYPERTENSION, DIABETES MOTHER: ALIVE, HYPERTENSION, DIABETES SIBLINGS: HYPERTENSION 2 BROTHER(S) . DAD , PARKINSON'S DISEASE. SOCIAL HISTORY GENERAL: TOBACCO USE ARE YOU A:NONSMOKER LATEX QUESTIONNAIRE LATEX ALLERGY : HAVE YOU EVER DEVELOPED ANY TYPE OF REACTION AFTER HANDLING LATEX PRODUCTS SUCH RUBBER GLOVES, CONDOMS, DIAPHRAGMS, BALLOONS, SOCKS, OR UNDERWEAR?NO LATEX ALLERGY : HAVE YOU EVER DEVELOPED ANY TYPE OF REACTION DURING OR AFTER DENTAL APPOINTMENT, VAGINAL/RECTAL EXAMINATION, SURGICAL PROCEDURE, OR ANY OTHER EXPOSURE?NO LATEX RISK : HAVE YOU EVER HAD ANY DIFFICULTY BREATHING OR HIVES AFTER EATING OR HANDLING ANY FRUITS, OR VEGETABLES; SUCH KIWI, BANANAS, STONE FRUITS, OR CHESTNUTSNO LATEX RISK : DO YOU HAVE A PREVIOUS PERSONAL HISTORY OF MORE THAN NINE SURGERIES, SPINA BIFIDA, OR REPEATED CATHERIZATIONS? NO LATEX RISK : ARE YOU FREQUENTLY EXPOSED TO LATEX PRODUCTS IN YOUR OCCUPATION?YES DATE ASKED : 02/18/2020 ALCOHOL SCREENING DID YOU HAVE A DRINK CONTAINING ALCOHOL IN THE PAST YEAR?NO POINTS0 INTERPRETATIONNEGATIVE RECREATIONAL DRUG USE DRUG USE?NO CAFFEINE CAFFEINE USE?NO HIV / HEP-C SCREENING HIV TEST OFFERED TO PATIENT:YES DATE OFFERED:08/24/2016 TEST ACCEPTED:NO HEP-C TEST OFFERED TO PATIENT:NO REASON:PATIENT DECLINED JEWISH [id number] NONE LANGUAGE LANGUAGES SPOKEN:AMHARIC EDUCATION LEVEL OF EDUCATION:HIGH SCHOOL LEARNING BARRIERS / SPECIAL NEEDS BARRIERS TO LEARNING?NO HEARING IMPAIRED?NO VISION IMPAIRED?NO COGNITIVELY IMPAIRED?NO READINESS TO LEARN?YES LEARNING PREFERENCES?NO LEARNING CAPABILITIES PRESENT?YES EMOTIONAL BARRIERS?NO SPECIAL DEVICES?NO PRODUCT SAFETY SPECIALIST NEEDED?NO DOMESTIC VIOLENCE DO YOU FEEL SAFE IN YOUR ENVIRONMENT?YES PAIN CLINIC PFS, CLERGY, PUBLIC HEALTH REFERRALS HAS THE PATIENT BEEN EDUCATED REGARDING HIS/HER PLAN OF CARE?YES HAS THE PATIENT BEEN EDUCATED REGARDING PAIN, THE RISK FOR PAIN, THE IMPORTANCE OF EFFECTIVE PAIN MANAGEMENT, AND THE PAIN ASSESSMENT PROCESS?YES ADVANCE DIRECTIVE ADVANCE DIRECTIVE DISCUSSED WITH PATIENT:NO PT DOES NOT HAVE ANY ADVANCED DIRECTIVES AND HE DECLINES INFORMATION ON HCP AT THIS TIME. HOSPITALIZATION/MAJOR DIAGNOSTIC PROCEDURE NO HOSPITALIZATION HISTORY. REVIEW OF SYSTEMS CONSTITUTIONAL: ANY RECENT FEVER NO . CHILLS NO . WEIGHT CHANGE OF UNKNOWN REASONS NO . GASTROENTEROLOGY: NEW UNEXPLAINABLE CHANGES IN BOWEL CONTROL NO . CONSTIPATION NO . GENITOURINARY: ANY NEW CHANGE IN BLADDER CONTROL? NO . NEUROLOGY: NEW ONSET DIZZINESS OR NEUROLOGICAL CHANGES NOT MENTIONED NO . NEW NUMBNESS OR PAIN PATTERNS NOT MENTIONED AND PERTINENT TO TODAY'S VISIT NO . CARDIOLOGY: NEW CHEST PRESSURE NO . NEW CHEST PAIN NO . RESPIRATORY: UNEXPLAINABLE COUGH NO . NEW SHORTNESS OF BREATH NO . VITAL SIGNS WT 209.6 LBS, HT 67 IN, BMI 32.82 INDEX, BP 140/82 MM HG, HR 83 /MIN, RR 18 /MIN, TEMP 97.6 F, OXYGEN SAT % 98%, SAFE IN ENV? (Y/N) YES, NA INITIALS AW 0912, REVIEWED BY: DM. EXAMINATION GENERAL EXAMINATION: GENERALNO ACUTE DISTRESS, WELL NOURISHED AND HYDRATED. PSYCHAPPROPRIATE MOOD AND AFFECT . LUNGS:CLEAR TO AUSCULTATION BILATERALLY, NO WHEEZES, RHONCHI, RALES. HEART:NO MURMURS, REGULAR RATE AND RHYTHM. ASSESSMENTS INTERVERTEBRAL DISC DISORDERS WITH RADICULOPATHY, LUMBOSACRAL REGION - M51.17 (PRIMARY) TREATMENT INTERVERTEBRAL DISC DISORDERS WITH RADICULOPATHY, LUMBOSACRAL REGION CLINICAL NOTES: 49-YEAR-OLD MALE IN FOR WORKER'S COMP. CHRONIC PAIN FOLLOW-UP. GIVEN PRESENTING SYMPTOMS RECOMMEND FOLLOW-UP IN ONE MONTH. DISCUSSED LYRICA WITH PATIENT TODAY AND HE IS HESITANT TO TRY MEDICATION SO WE WILL DISCUSS IT MORE IN ONE MONTH. PATIENT HAS EXPRESSED UNDERSTANDING OF AND WAS IN AGREEMENT WITH TREATMENT PLAN. GIVEN TIME TO ASK QUESTIONS AND EXPRESS CONCERNS. PROCEDURES PN WORKMANS' COMP OPINION IN YOUR OPINION, WAS THE INCIDENT THAT THE PATIENT DESCRIBED THE COMPETENT MEDICAL CAUSE OF THIS INJURY/ILLNESS? YES ARE THE PATIENT'S COMPLAINTS CONSISTENT WITH HIS/HER HISTORY OF THE INJURY/ILLNESS? YES IS THE PATIENT'S HISTORY OF THE INJURY/ILLNESS CONSISTENT WITH YOUR OBJECTIVE FINDING? YES WHAT IS THE PERCENTAGE OF TEMPORARY IMPAIRMENT? MODERATE TO MARKED = 66.7% IS THE PATIENT WORKING? YES DOCTOR ON SITE: BARAK DE LA FUENTE MD PRE[facility]ICINE PAIN CLINIC TEACHING: THE PATIENT HAS BEEN EDUCATED REGARDING PAIN, THE RISK FOR PAIN, THE IMPORTANCE OF EFFECTIVE PAIN MANAGEMENT, AND THE PAIN ASSESSMENT PROCESS. : DISCUSSED CARE PLAN WITH PATIENT, PATIENT VERBALIZES UNDERSTANDING. PROCEDURE CODES FA211 ESTABILISHED PATIENT [facility] CHAR[facility] DISPOSITION & COMMUNICATION FOLLOW UP 4 WEEKS (REASON: WORKER'S COMP. BACK PAIN) ELECTRONICALLY SIGNED BY VIRGEN RAMIREZ ON 02/22/2020 AT 09:15 AM EDT DISCLAIMER : THIS IS A VISIT SUMMARY EXTRACTED FROM THE [employer] CHART. IT IS NOT A COPY OF THE [employer] PROGRESS NOTE. ANTHONY
== END ==
LOC: M PAIN 09:00
PROVIDERS: ATTEND Family Medicine
DX: M51.17 Intervertebral disc disorders with radiculopathy, lumbosacral region (principal); G89.29 Other chronic pain; Z91.09 Other allergy status, other than to drugs and biological substances; Z79.899 Other long term (current) drug therapy

== ENCOUNTER → 2020-03-17 | Outpatient (CLI) | payer OTHER ==
--- NOTE | 2020-03-22 03:53 | ECWPNPC ---
PATIENT NAME: AUBRIE CRONIN : 1970 GENDER: MALE VISIT DATE: 03/17/2020 DISCHARGE DATE: 03/17/20 1011 VISIT LOCKED DATE TIME: PHYSICIAN: DEXTER RAMSEY RESOURCE: DEXTER RAMSEY REASON FOR APPOINTMENT 1. W/C BACK PAIN HISTORY OF PRESENT ILLNESS GENERAL: 42-YEAR-OLD MALE IN FOR WORKER'S COMP. CHRONIC PAIN FOLLOW-UP. HE RATES HIS PAIN CURRENTLY AT A 5 OUT OF 10 AND DESCRIBES IT ACHING, STABBING, AND SHOOTING. 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 THE PATIENT SAYS THAT THE PAIN STARTS IN HIS LOW BACK AND RADIATES DOWN INTO BOTH LEGS. THE PATIENT SAYS THAT HE HAS DIFFICULTY LIFTING DUE TO THIS PAIN. THE PATIENT STATES THAT MEDICATION, PHYSICAL THERAPY, AND INJECTION THERAPY HAVE HELPFUL IN THE PAST. FALL RISK SCREENING: SCREENING :NO FALLS REPORTED IN THE LAST YEAR PAIN SCREENING: PATIENT HAS A COMPLAINT OF ACUTE OR CHRONIC PAIN :YES LOCATION OF PAIN:LOW BACK, LEG(S) INTENSITY OF PAIN (SCALE OF 1 TO 10):5 WHAT DOES YOUR PAIN FEEL LIKE:ACHING, STABBING, SHOOTING DURATION:CONTINOUS, CONSTANT PAIN IS INCREASED BY:PROLONGED STANDING PAIN IS DECREASED BY:USE OF PAIN MEDICATIONS STRETCHES TREATMENT/MEDICATIONS USED TO MANAGE PAIN:OTC PAIN RELIEVERS, NSAIDS LEVEL OF RELIEF FROM PAIN TREATMENTS IN THE PAST:75% PAIN HAS INTERFERED WITH THE FOLLOWING: NO NURSING NOTE: -. PAIN CENTER INTAKE QUESTIONS: DO YOU HAVE A HISTORY OF MRSA? :NO DO YOU TAKE A BLOOD THINNERS? :NO DO YOU HAVE ANY BLEEDING DISORDERS? :NO ANY NEW NUMBNESS OR WEAKNESS IN YOUR LEGS OR ARMS? :NO ANY PACEMAKER,DEFIBRILLATOR, OR DORSAL COLUMN STIMULATOR? :NO DO YOU HAVE ANY RASHES OR OPEN SORES? :NO ARE YOU ALLERGIC TO IV DYE? :NO ARE YOU DIABETIC? :NO ANY NEW PROBLEMS WITH YOUR MEDICATIONS? :NO HAVE YOU RECEIVED A VACCINE IN THE PAST 30 DAYS? :NO DO YOU PLAN TO RECEIVE A VACCINE IN THE NEXT 21 DAYS? :NO DO YOU NEED ANY PRESCRIPTION? :NO DO YOU TAKE ANY IMMUNOSUPPRESSIVE MEDICATIONS? :NO IS THERE A CHANCE YOU COULD BE ? :NO ARE YOU BREAST FEEDING? :NO CURRENT MEDICATIONS TAKING MULTIVITAMINS CAPSULE 1 CAP ORALLY DAILY TAKING CETIRIZINE HCL 10 MG TABLET 1 TABLET ORALLY ONCE A DAY TAKING ALEVE 220 MG TABLET 1-2 TABS ORALLY DAILY TAKING BENADRYL ALLERGY 25 MG TABLET 1 TABLET AT BEDTIME NEEDED ORALLY ONCE A DAY MEDICATION LIST REVIEWED AND RECONCILED WITH THE PATIENT PAST MEDICAL HISTORY LOW BACK PAIN ENVIRONMENTAL ALLERGIES ALLERGIES POISON FRANTZ: RASH - ALLERGY ENVIRONMENTAL: CONGESTION SNEEZING - ALLERGY SURGICAL HISTORY COLONOSCOPY FAMILY HISTORY FATHER: , DIAGNOSED WITH HYPERTENSION, DIABETES MOTHER: ALIVE, HYPERTENSION, DIABETES SIBLINGS: HYPERTENSION 2 BROTHER(S) . DAD , PARKINSON'S DISEASE. SOCIAL HISTORY GENERAL: TOBACCO USE ARE YOU A:NONSMOKER LATEX QUESTIONNAIRE LATEX ALLERGY : HAVE YOU EVER DEVELOPED ANY TYPE OF REACTION AFTER HANDLING LATEX PRODUCTS SUCH RUBBER GLOVES, CONDOMS, DIAPHRAGMS, BALLOONS, SOCKS, OR UNDERWEAR?NO LATEX ALLERGY : HAVE YOU EVER DEVELOPED ANY TYPE OF REACTION DURING OR AFTER DENTAL APPOINTMENT, VAGINAL/RECTAL EXAMINATION, SURGICAL PROCEDURE, OR ANY OTHER EXPOSURE?NO DATE ASKED : 02/18/2020 LATEX RISK : HAVE YOU EVER HAD ANY DIFFICULTY BREATHING OR HIVES AFTER EATING OR HANDLING ANY FRUITS, OR VEGETABLES; SUCH KIWI, BANANAS, STONE FRUITS, OR CHESTNUTSNO LATEX RISK : DO YOU HAVE A PREVIOUS PERSONAL HISTORY OF MORE THAN NINE SURGERIES, SPINA BIFIDA, OR REPEATED CATHERIZATIONS? NO LATEX RISK : ARE YOU FREQUENTLY EXPOSED TO LATEX PRODUCTS IN YOUR OCCUPATION?YES ALCOHOL SCREENING DID YOU HAVE A DRINK CONTAINING ALCOHOL IN THE PAST YEAR?NO POINTS0 INTERPRETATIONNEGATIVE RECREATIONAL DRUG USE DRUG USE?NO CAFFEINE CAFFEINE USE?NO HIV / HEP-C SCREENING HIV TEST OFFERED TO PATIENT:YES DATE OFFERED:08/24/2016 TEST ACCEPTED:NO HEP-C TEST OFFERED TO PATIENT:NO REASON:PATIENT DECLINED UATSDIN [id number] NONE LANGUAGE LANGUAGES SPOKEN:ROMANSH EDUCATION LEVEL OF EDUCATION:HIGH SCHOOL LEARNING BARRIERS / SPECIAL NEEDS BARRIERS TO LEARNING?NO HEARING IMPAIRED?NO VISION IMPAIRED?NO COGNITIVELY IMPAIRED?NO READINESS TO LEARN?YES LEARNING PREFERENCES?NO LEARNING CAPABILITIES PRESENT?YES EMOTIONAL BARRIERS?NO SPECIAL DEVICES?NO MANUFACTURING BUSINESS ANALYST NEEDED?NO DOMESTIC VIOLENCE DO YOU FEEL SAFE IN YOUR ENVIRONMENT?YES PAIN CLINIC PFS, CLERGY, PUBLIC HEALTH REFERRALS HAS THE PATIENT BEEN EDUCATED REGARDING HIS/HER PLAN OF CARE?YES HAS THE PATIENT BEEN EDUCATED REGARDING PAIN, THE RISK FOR PAIN, THE IMPORTANCE OF EFFECTIVE PAIN MANAGEMENT, AND THE PAIN ASSESSMENT PROCESS?YES ADVANCE DIRECTIVE ADVANCE DIRECTIVE DISCUSSED WITH PATIENT:NO PT DOES NOT HAVE ANY ADVANCED DIRECTIVES AND HE DECLINES INFORMATION ON HCP AT THIS TIME. HOSPITALIZATION/MAJOR DIAGNOSTIC PROCEDURE NO HOSPITALIZATION HISTORY. REVIEW OF SYSTEMS CONSTITUTIONAL: ANY RECENT FEVER NO . CHILLS NO . WEIGHT CHANGE OF UNKNOWN REASONS NO . GASTROENTEROLOGY: NEW UNEXPLAINABLE CHANGES IN BOWEL CONTROL NO . CONSTIPATION NO . GENITOURINARY: ANY NEW CHANGE IN BLADDER CONTROL? NO . NEUROLOGY: NEW ONSET DIZZINESS OR NEUROLOGICAL CHANGES NOT MENTIONED NO . NEW NUMBNESS OR PAIN PATTERNS NOT MENTIONED AND PERTINENT TO TODAY'S VISIT NO . CARDIOLOGY: NEW CHEST PRESSURE NO . NEW CHEST PAIN NO . RESPIRATORY: UNEXPLAINABLE COUGH NO . NEW SHORTNESS OF BREATH NO . VITAL SIGNS WT 210.6 LBS, HT 67 IN, BMI 32.98 INDEX, BP 133/76 MM HG, HR 71 /MIN, RR 18 /MIN, TEMP 97.4 F, OXYGEN SAT % 98%, SAFE IN ENV? (Y/N) Y, NA INITIALS AW 0925, REVIEWED BY: EM. EXAMINATION GENERAL EXAMINATION: GENERALNO ACUTE DISTRESS, WELL NOURISHED AND HYDRATED. PSYCHAPPROPRIATE MOOD AND AFFECT . LUNGS:CLEAR TO AUSCULTATION BILATERALLY, NO WHEEZES, RHONCHI, RALES. HEART:NO MURMURS, REGULAR RATE AND RHYTHM. ASSESSMENTS INTERVERTEBRAL DISC DISORDERS WITH RADICULOPATHY, LUMBOSACRAL REGION - M51.17 (PRIMARY) TREATMENT INTERVERTEBRAL DISC DISORDERS WITH RADICULOPATHY, LUMBOSACRAL REGION NOTES: 50-YEAR-OLD MALE IN FOR CHRONIC PAIN FOLLOW-UP. GIVEN PRESENTING SYMPTOMS RECOMMEND FOLLOW-UP IN CLINIC IN 4 MONTHS. PATIENT HAS EXPRESSED UNDERSTANDING OF AND WAS IN AGREEMENT WITH TREATMENT PLAN. GIVEN TIME TO ASK QUESTIONS AND EXPRESS CONCERNS. PROCEDURE CODES FA211 ESTABILISHED PATIENT [facility] FACILITY CHARGE DISPOSITION & COMMUNICATION FOLLOW UP 4 MONTHS (REASON: WORKER'S COMP. CHRONIC PAIN) ELECTRONICALLY SIGNED BY VIRGEN RAMIREZ ON 03/21/2020 AT 08:43 AM EST DISCLAIMER : THIS IS A VISIT SUMMARY EXTRACTED FROM THE [employer] CHART. IT IS NOT A COPY OF THE [employer] PROGRESS NOTE. ANTHONY
== END ==
LOC: M PAIN 09:15
PROVIDERS: ATTEND Family Medicine
DX: M51.17 Intervertebral disc disorders with radiculopathy, lumbosacral region (principal); J30.9 Allergic rhinitis, unspecified; Z79.1 Long term (current) use of non-steroidal anti-inflammatories (NSAID); Z79.899 Other long term (current) drug therapy

== ENCOUNTER → 2020-07-15 | Outpatient (CLI) | payer OTHER ==
--- NOTE | 2020-07-19 10:04 | ECWPNPC ---
PATIENT NAME: AUBRIE CRONIN : 1970 GENDER: MALE VISIT DATE: 07/15/2020 DISCHARGE DATE: 07/15/20930 VISIT LOCKED DATE TIME: PHYSICIAN: DEXTER RAMSEY RESOURCE: DEXTER RAMSEY REASON FOR APPOINTMENT 1. WORKER'S COMP. CHRONIC PAIN HISTORY OF PRESENT ILLNESS GENERAL: - 50-YEAR-OLD MALE IN FOR WORKER'S COMP. CHRONIC PAIN FOLLOW-UP. HE RATES HIS PAIN CURRENTLY AT A 4 OUT OF 10 AND DESCRIBES IT ACHING, CONTINUOUS, INTERMITTENT, AND SHARP. FURTHER STATES THERE IS A DULL ACHE ALL THE TIME. THE PATIENT WAS HURT IN A WORK RELATED INJURY ON 01/24/2010 WHILE WORKING AT [employer] A [employer] WHEN A TRUCK WAS MOVING AND HE TRIED TO STOP IT FROM HITTING A CAR CAUSING HIM TO INJURE HIS BACK. THE PATIENT SAYS THAT THE PAIN STARTS IN HIS LOW BACK AND RADIATES DOWN INTO BOTH LEGS. THE PATIENT SAYS THAT HE HAS DIFFICULTY LIFTING DUE TO THIS PAIN. THE PATIENT STATES THAT MEDICATION, PHYSICAL THERAPY, AND INJECTION THERAPY HAVE HELPFUL IN THE PAST. FALL RISK SCREENING: SCREENING : NO FALLS REPORTED IN THE LAST YEAR. PAIN SCREENING: PATIENT HAS A COMPLAINT OF ACUTE OR CHRONIC PAIN :YES LOCATION OF PAIN:LOW BACK, LEG(S) RADIATES DOWN BIALTERAL LEGS, LEFT GREATER RIGHT INTENSITY OF PAIN (SCALE OF 1 TO 10):4 WHAT DOES YOUR PAIN FEEL LIKE:ACHING, CONTINOUS, INTERMITTENT, SHARP DULL ACHE ALL THE TIME DURATION:CONTINOUS, PERIODIC PAIN IS INCREASED BY:PROLONGED STANDING PAIN IS DECREASED BY:SITTING NURSING NOTE: -. PAIN CENTER INTAKE QUESTIONS: DO YOU HAVE A HISTORY OF MRSA? :NO DO YOU TAKE A BLOOD THINNERS? :NO DO YOU HAVE ANY BLEEDING DISORDERS? :NO ANY NEW NUMBNESS OR WEAKNESS IN YOUR LEGS OR ARMS? :NO ANY PACEMAKER,DEFIBRILLATOR, OR DORSAL COLUMN STIMULATOR? :NO DO YOU HAVE ANY RASHES OR OPEN SORES? :NO ARE YOU ALLERGIC TO IV DYE? :NO ARE YOU DIABETIC? :NO ANY NEW PROBLEMS WITH YOUR MEDICATIONS? :NO HAVE YOU RECEIVED A VACCINE IN THE PAST 30 DAYS? :YES IF SO WHAT VACCINE AND WHEN? 2ND COVID SHOT 07/13/2020 DO YOU PLAN TO RECEIVE A VACCINE IN THE NEXT 21 DAYS? :NO DO YOU NEED ANY PRESCRIPTION? :NO DO YOU TAKE ANY IMMUNOSUPPRESSIVE MEDICATIONS? :NO DO YOU HAVE ANY KIDNEY OR LIVER DISEASE? :NO IS THERE A CHANCE YOU COULD BE ? :NO ARE YOU BREAST FEEDING? :NO CURRENT MEDICATIONS TAKING MULTIVITAMINS CAPSULE 1 CAP ORALLY DAILY TAKING CETIRIZINE HCL 10 MG TABLET 1 TABLET ORALLY ONCE A DAY TAKING ALEVE 220 MG TABLET 1-2 TABS ORALLY DAILY TAKING BENADRYL ALLERGY 25 MG TABLET 1 TABLET AT BEDTIME NEEDED ORALLY ONCE A DAY MEDICATION LIST REVIEWED AND RECONCILED WITH THE PATIENT PAST MEDICAL HISTORY LOW BACK PAIN ENVIRONMENTAL ALLERGIES ALLERGIES POISON FRANTZ: RASH - ALLERGY ENVIRONMENTAL: CONGESTION SNEEZING - ALLERGY SOCIAL HISTORY GENERAL: TOBACCO USE ARE YOU A:NONSMOKER LATEX QUESTIONNAIRE LATEX ALLERGY : HAVE YOU EVER DEVELOPED ANY TYPE OF REACTION AFTER HANDLING LATEX PRODUCTS SUCH RUBBER GLOVES, CONDOMS, DIAPHRAGMS, BALLOONS, SOCKS, OR UNDERWEAR?NO LATEX ALLERGY : HAVE YOU EVER DEVELOPED ANY TYPE OF REACTION DURING OR AFTER DENTAL APPOINTMENT, VAGINAL/RECTAL EXAMINATION, SURGICAL PROCEDURE, OR ANY OTHER EXPOSURE?NO LATEX RISK : HAVE YOU EVER HAD ANY DIFFICULTY BREATHING OR HIVES AFTER EATING OR HANDLING ANY FRUITS, OR VEGETABLES; SUCH KIWI, BANANAS, STONE FRUITS, OR CHESTNUTSNO LATEX RISK : DO YOU HAVE A PREVIOUS PERSONAL HISTORY OF MORE THAN NINE SURGERIES, SPINA BIFIDA, OR REPEATED CATHERIZATIONS? NO LATEX RISK : ARE YOU FREQUENTLY EXPOSED TO LATEX PRODUCTS IN YOUR OCCUPATION?YES DATE ASKED : 07/15/2020 ALCOHOL SCREENING DID YOU HAVE A DRINK CONTAINING ALCOHOL IN THE PAST YEAR?NO POINTS0 INTERPRETATIONNEGATIVE RECREATIONAL DRUG USE DRUG USE?NO CAFFEINE CAFFEINE USE?NO HIV / HEP-C SCREENING HIV TEST OFFERED TO PATIENT:YES DATE OFFERED:08/24/2016 TEST ACCEPTED:NO HEP-C TEST OFFERED TO PATIENT:NO REASON:PATIENT DECLINED YARSANISM [id number] NONE LANGUAGE LANGUAGES SPOKEN:AMHARIC EDUCATION LEVEL OF EDUCATION:HIGH SCHOOL LEARNING BARRIERS / SPECIAL NEEDS CHANGE FROM LAST VISIT?NO BARRIERS TO LEARNING?NO HEARING IMPAIRED?NO VISION IMPAIRED?NO COGNITIVELY IMPAIRED?NO READINESS TO LEARN?YES LEARNING PREFERENCES?NO LEARNING CAPABILITIES PRESENT?YES EMOTIONAL BARRIERS?NO SPECIAL DEVICES?NO QM NURSE NEEDED?NO DOMESTIC VIOLENCE DO YOU FEEL SAFE IN YOUR ENVIRONMENT?YES - HAS THE PATIENT BEEN EDUCATED REGARDING HIS/HER PLAN OF CARE?YES HAS THE PATIENT BEEN EDUCATED REGARDING PAIN, THE RISK FOR PAIN, THE IMPORTANCE OF EFFECTIVE PAIN MANAGEMENT, AND THE PAIN ASSESSMENT PROCESS?YES ADVANCE DIRECTIVE ADVANCE DIRECTIVE DISCUSSED WITH PATIENT:NO PT DOES NOT HAVE ANY ADVANCED DIRECTIVES AND HE DECLINES INFORMATION ON HCP AT THIS TIME. REVIEW OF SYSTEMS CONSTITUTIONAL: ANY RECENT FEVER NO . CHILLS NO . WEIGHT CHANGE OF UNKNOWN REASONS NO . GASTROENTEROLOGY: NEW UNEXPLAINABLE CHANGES IN BOWEL CONTROL NO . CONSTIPATION NO . GENITOURINARY: ANY NEW CHANGE IN BLADDER CONTROL? NO . NEUROLOGY: NEW ONSET DIZZINESS OR NEUROLOGICAL CHANGES NOT MENTIONED NO . NEW NUMBNESS OR PAIN PATTERNS NOT MENTIONED AND PERTINENT TO TODAY'S VISIT NO . CARDIOLOGY: NEW CHEST PRESSURE NO . PATIENT DENIES NO . RESPIRATORY: UNEXPLAINABLE COUGH NO . NEW SHORTNESS OF BREATH NO . VITAL SIGNS WT 214.4 LBS, HT 67 IN, BMI 33.58 INDEX, BP 146/89 MM HG, HR 81 /MIN, RR 18 /MIN, TEMP 97.6 F, OXYGEN SAT % 98%, SAFE IN ENV? (Y/N) YES, REVIEWED BY: Neida TORRES RN. EXAMINATION GENERAL EXAMINATION: GENERALNO ACUTE DISTRESS, WELL NOURISHED AND HYDRATED. PSYCHAPPROPRIATE MOOD AND AFFECT . LUNGS:CLEAR TO AUSCULTATION BILATERALLY, NO WHEEZES, RHONCHI, RALES. HEART:NO MURMURS, REGULAR RATE AND RHYTHM. ASSESSMENTS INTERVERTEBRAL DISC DISORDER WITH RADICULOPATHY OF LUMBAR REGION - M51.16 (PRIMARY) TREATMENT INTERVERTEBRAL DISC DISORDER WITH RADICULOPATHY OF LUMBAR REGION NOTES: 50-YEAR-OLD MALE IN FOR CHRONIC PAIN FOLLOW-UP. GIVEN PRESENTING SYMPTOMS RECOMMENDED FOLLOW-UP IN 3 MONTHS. PATIENT HAS EXPRESSED UNDERSTANDING OF AND WAS IN AGREEMENT WITH TREATMENT PLAN. GIVEN TIME TO ASK QUESTIONS AND EXPRESS CONCERNS. PROCEDURES PN WORKMANS' COMP OPINION IN YOUR OPINION, WAS THE INCIDENT THAT THE PATIENT DESCRIBED THE COMPETENT MEDICAL CAUSE OF THIS INJURY/ILLNESS? YES ARE THE PATIENT'S COMPLAINTS CONSISTENT WITH HIS/HER HISTORY OF THE INJURY/ILLNESS? YES IS THE PATIENT'S HISTORY OF THE INJURY/ILLNESS CONSISTENT WITH YOUR OBJECTIVE FINDING? YES WHAT IS THE PERCENTAGE OF TEMPORARY IMPAIRMENT? MODERATE TO MARKED = 66.7% IS THE PATIENT WORKING? YES DOCTOR ON SITE: BARAK DE LA FUENTE MD PROCEDURE CODES FA211 ESTABILISHED PATIENT [facility] FACILITY CHARGE DISPOSITION & COMMUNICATION FOLLOW UP 3 MONTHS (REASON: WORKER'S COMP. LOW BACK PAIN) ELECTRONICALLY SIGNED BY VIRGEN RAMIREZ ON 07/18/2020 AT 08:29 AM EDT DISCLAIMER : THIS IS A VISIT SUMMARY EXTRACTED FROM THE [employer] CHART. IT IS NOT A COPY OF THE [employer] PROGRESS NOTE. ANTHONY
== END ==
LOC: M PAIN 09:00
PROVIDERS: ATTEND Family Medicine
DX: M51.16 Intervertebral disc disorders with radiculopathy, lumbar region (principal); G89.29 Other chronic pain; Z91.09 Other allergy status, other than to drugs and biological substances; Z79.899 Other long term (current) drug therapy

== ENCOUNTER → 2020-10-18 | Outpatient (CLI) | payer OTHER ==
--- NOTE | 2020-10-20 04:51 | ECWPNPC ---
PATIENT NAME: AUBRIE CRONIN : 1970 GENDER: MALE VISIT DATE: 10/18/2020 DISCHARGE DATE: 10/18/20916 VISIT LOCKED DATE TIME: PHYSICIAN: DEXTER RAMSEY RESOURCE: DEXTER RAMSEY REASON FOR APPOINTMENT 1. WORKER'S COMP. LOW BACK PAIN HISTORY OF PRESENT ILLNESS DEPRESSION SCREENING: PHQ-2 (2015 EDITION) LITTLE INTEREST OR PLEASURE IN DOING THINGS?NOT AT ALL FEELING DOWN, DEPRESSED, OR HOPELESS?NOT AT ALL TOTAL SCORE0 GENERAL: HPI 42-YEAR-OLD MALE IN FOR WORKER'S COMP. CHRONIC PAIN FOLLOW-UP. HE RATES PAIN CURRENTLY AT A 4-10 AND DESCRIBES IT ACHING, CONTINUOUS, AND STABBING. HE FURTHER STATES THAT HIS CURRENT PAIN IS TOLERABLE. DOI: 01/24/2010. -. FALL RISK SCREENING: SCREENING : NO FALLS REPORTED IN THE LAST YEAR. PAIN SCREENING: PATIENT HAS A COMPLAINT OF ACUTE OR CHRONIC PAIN :YES LOCATION OF PAIN:LOW BACK, LEG(S) INTENSITY OF PAIN (SCALE OF 1 TO 10):4 WHAT DOES YOUR PAIN FEEL LIKE:ACHING, CONTINOUS, STABBING DURATION:CONTINOUS PAIN IS INCREASED BY:PROLONGED STANDING PAIN IS DECREASED BY:OTHERS STATES THAT HIS PAIN IS TOLERABLE AT A LEVEL 4/10, STRETCHING ACTIVITIES NURSING NOTE: -. PAIN CENTER INTAKE QUESTIONS: DO YOU HAVE A HISTORY OF MRSA? :NO DO YOU TAKE A BLOOD THINNERS? :NO DO YOU HAVE ANY BLEEDING DISORDERS? :NO ANY NEW NUMBNESS OR WEAKNESS IN YOUR LEGS OR ARMS? :NO ANY PACEMAKER,DEFIBRILLATOR, OR DORSAL COLUMN STIMULATOR? :NO DO YOU HAVE ANY RASHES OR OPEN SORES? :NO ARE YOU ALLERGIC TO IV DYE? :NO ARE YOU DIABETIC? :NO ANY NEW PROBLEMS WITH YOUR MEDICATIONS? :NO HAVE YOU RECEIVED A VACCINE IN THE PAST 30 DAYS? :NO DO YOU PLAN TO RECEIVE A VACCINE IN THE NEXT 21 DAYS? :NO DO YOU NEED ANY PRESCRIPTION? :NO DO YOU TAKE ANY IMMUNOSUPPRESSIVE MEDICATIONS? :NO DO YOU HAVE ANY KIDNEY OR LIVER DISEASE? :NO IS THERE A CHANCE YOU COULD BE ? :NO ARE YOU BREAST FEEDING? :NO CURRENT MEDICATIONS TAKING MULTIVITAMINS CAPSULE 1 CAP ORALLY DAILY TAKING CETIRIZINE HCL 10 MG TABLET 1 TABLET ORALLY ONCE A DAY TAKING ALEVE 220 MG TABLET 1-2 TABS ORALLY DAILY TAKING BENADRYL ALLERGY 25 MG TABLET 1 TABLET AT BEDTIME NEEDED ORALLY ONCE A DAY MEDICATION LIST REVIEWED AND RECONCILED WITH THE PATIENT PAST MEDICAL HISTORY LOW BACK PAIN ENVIRONMENTAL ALLERGIES ALLERGIES POISON FRANTZ: RASH - ALLERGY ENVIRONMENTAL: CONGESTION SNEEZING - ALLERGY SOCIAL HISTORY GENERAL: TOBACCO USE ARE YOU A:NONSMOKER LATEX QUESTIONNAIRE LATEX ALLERGY : HAVE YOU EVER DEVELOPED ANY TYPE OF REACTION AFTER HANDLING LATEX PRODUCTS SUCH RUBBER GLOVES, CONDOMS, DIAPHRAGMS, BALLOONS, SOCKS, OR UNDERWEAR?NO LATEX ALLERGY : HAVE YOU EVER DEVELOPED ANY TYPE OF REACTION DURING OR AFTER DENTAL APPOINTMENT, VAGINAL/RECTAL EXAMINATION, SURGICAL PROCEDURE, OR ANY OTHER EXPOSURE?NO LATEX RISK : HAVE YOU EVER HAD ANY DIFFICULTY BREATHING OR HIVES AFTER EATING OR HANDLING ANY FRUITS, OR VEGETABLES; SUCH KIWI, BANANAS, STONE FRUITS, OR CHESTNUTSNO LATEX RISK : DO YOU HAVE A PREVIOUS PERSONAL HISTORY OF MORE THAN NINE SURGERIES, SPINA BIFIDA, OR REPEATED CATHERIZATIONS? NO LATEX RISK : ARE YOU FREQUENTLY EXPOSED TO LATEX PRODUCTS IN YOUR OCCUPATION?YES DATE ASKED : 10/18/2020 ALCOHOL USE: NO. ALCOHOL SCREENING DID YOU HAVE A DRINK CONTAINING ALCOHOL IN THE PAST YEAR?NO POINTS0 INTERPRETATIONNEGATIVE RECREATIONAL DRUG USE DRUG USE?NO CAFFEINE CAFFEINE USE?NO HIV / HEP-C SCREENING HIV TEST OFFERED TO PATIENT:YES DATE OFFERED:08/24/2016 TEST ACCEPTED:NO HEP-C TEST OFFERED TO PATIENT:NO REASON:PATIENT DECLINED HOAHAOISM [id number] NONE LANGUAGE LANGUAGES SPOKEN:SWEDISH EDUCATION LEVEL OF EDUCATION:HIGH SCHOOL LEARNING BARRIERS / SPECIAL NEEDS CHANGE FROM LAST VISIT?NO BARRIERS TO LEARNING?NO HEARING IMPAIRED?NO VISION IMPAIRED?NO COGNITIVELY IMPAIRED?NO READINESS TO LEARN?YES LEARNING PREFERENCES?NO LEARNING CAPABILITIES PRESENT?YES EMOTIONAL BARRIERS?NO SPECIAL DEVICES?NO RELIGIOUS EDUCATION TEACHER NEEDED?NO DOMESTIC VIOLENCE DO YOU FEEL SAFE IN YOUR ENVIRONMENT?YES - HAS THE PATIENT BEEN EDUCATED REGARDING HIS/HER PLAN OF CARE?YES HAS THE PATIENT BEEN EDUCATED REGARDING PAIN, THE RISK FOR PAIN, THE IMPORTANCE OF EFFECTIVE PAIN MANAGEMENT, AND THE PAIN ASSESSMENT PROCESS?YES ADVANCE DIRECTIVE ADVANCE DIRECTIVE DISCUSSED WITH PATIENT:NO PT DOES NOT HAVE ANY ADVANCED DIRECTIVES AND HE DECLINES INFORMATION ON HCP AT THIS TIME. REVIEW OF SYSTEMS CONSTITUTIONAL: ANY RECENT FEVER NO . CHILLS NO . WEIGHT CHANGE OF UNKNOWN REASONS NO . GASTROENTEROLOGY: NEW UNEXPLAINABLE CHANGES IN BOWEL CONTROL NO . CONSTIPATION NO . GENITOURINARY: ANY NEW CHANGE IN BLADDER CONTROL? NO . NEUROLOGY: NEW ONSET DIZZINESS OR NEUROLOGICAL CHANGES NOT MENTIONED NO . NEW NUMBNESS OR PAIN PATTERNS NOT MENTIONED AND PERTINENT TO TODAY'S VISIT NO . CARDIOLOGY: NEW CHEST PRESSURE NO . PATIENT DENIES NO . RESPIRATORY: UNEXPLAINABLE COUGH NO . NEW SHORTNESS OF BREATH NO . VITAL SIGNS WT 201.4 LBS, HT 67 IN, BMI 31.54 INDEX, BP 126/81 MM HG, HR 73 /MIN, RR 18 /MIN, TEMP 98.6 F, OXYGEN SAT % 100%, SAFE IN ENV? (Y/N) YES, NA INITIALS AW 0900, REVIEWED BY: Neida TORRES RN. EXAMINATION GENERAL EXAMINATION: GENERALNO ACUTE DISTRESS, WELL NOURISHED AND HYDRATED. PSYCHAPPROPRIATE MOOD AND AFFECT . LUNGS:CLEAR TO AUSCULTATION BILATERALLY, NO WHEEZES, RHONCHI, RALES. HEART:NO MURMURS, REGULAR RATE AND RHYTHM. ASSESSMENTS INTERVERTEBRAL DISC DISORDERS WITH RADICULOPATHY, LUMBOSACRAL REGION - M51.17 (PRIMARY), RISK: (NULL) TREATMENT INTERVERTEBRAL DISC DISORDERS WITH RADICULOPATHY, LUMBOSACRAL REGION NOTES: 50-YEAR-OLD MALE IN FOR WORKER'S COMP. CHRONIC PAIN FOLLOW-UP. GIVEN PRESENTING SYMPTOMS RECOMMEND FOLLOW-UP IN 3 MONTHS. PATIENT IS EXPRESSED UNDERSTANDING OF AND WAS IN AGREEMENT WITH TREATMENT PLAN. GIVEN TIME QUESTIONS AND EXPRESS CONCERNS. PROCEDURES PN WORKMANS' COMP OPINION IN YOUR OPINION, WAS THE INCIDENT THAT THE PATIENT DESCRIBED THE COMPETENT MEDICAL CAUSE OF THIS INJURY/ILLNESS? YES ARE THE PATIENT'S COMPLAINTS CONSISTENT WITH HIS/HER HISTORY OF THE INJURY/ILLNESS? YES IS THE PATIENT'S HISTORY OF THE INJURY/ILLNESS CONSISTENT WITH YOUR OBJECTIVE FINDING? YES WHAT IS THE PERCENTAGE OF TEMPORARY IMPAIRMENT? MODERATE TO MARKED = 66.7% IS THE PATIENT WORKING? YES DOCTOR ON SITE: BARAK DE LA FUENTE MD PROCEDURE CODES FA211 ESTABILISHED PATIENT [facility] FACILITY CHARGE DISPOSITION & COMMUNICATION FOLLOW UP 3 MONTHS (REASON: LOW BACK PAIN ) ELECTRONICALLY SIGNED BY VIRGEN RAMIREZ ON 10/19/2020 AT 09:01 AM EDT DISCLAIMER : THIS IS A VISIT SUMMARY EXTRACTED FROM THE [employer] CHART. IT IS NOT A COPY OF THE [employer] PROGRESS NOTE. ANTHONY
== END ==
LOC: M PAIN 09:00
PROVIDERS: ATTEND Family Medicine
DX: M51.17 Intervertebral disc disorders with radiculopathy, lumbosacral region (principal); G89.29 Other chronic pain; Z79.899 Other long term (current) drug therapy

== ENCOUNTER → 2021-01-18 | Outpatient (CLI) | payer OTHER | LOC: M PAIN 09:00 | PROVIDERS: ATTEND Anesthesiology | DX: M48.061 Spinal stenosis, lumbar region without neurogenic claudication (principal); M51.16 Intervertebral disc disorders with radiculopathy, lumbar region; G89.29 Other chronic pain; Z79.899 Other long term (current) drug therapy ==

== ENCOUNTER → 2021-03-01 | Outpatient (CLI) | payer OTHER | LOC: M LABSMTC 09:21 | PROVIDERS: ATTEND Anesthesiology | DX: Z01.812 Encounter for preprocedural laboratory examination (principal); Z20.822 Contact with and (suspected) exposure to COVID-19 ==

== ENCOUNTER → 2021-03-06 | Outpatient (CLI) | payer OTHER ==
[~2021-03-06] MED LIST changes: +ISOVUE-M 300 61% 15ML VIAL As Ordered ONE; +LIDOCAINE 1% SDV 30ML VIAL As Ordered ONE; +diazePAM 5MG TABLET As Ordered ONE; +methylPREDNISolone SUSP 40MG/ML 1ML VIAL (DEPO MEDROL) As Ordered ONE; +oxyCODONE 5MG TAB As Ordered ONE
--- NOTE | 2021-03-06 16:37 | REP ---
INDICATION: W/C LUMBAR EPIDURAL STEROID INJECTION. COMPARISON: None. TECHNIQUE: Three C-arm views lower lumbar spine. FINDINGS: A needle is seen at the L5 level. IMPRESSION: 14 seconds of fluoroscopy time was utilized. <Electronically signed by Oren Srinivasan > 03/06/21 [id number]
== END ==
LOC: M PAIN 09:20
PROVIDERS: ATTEND Anesthesiology
DX: M51.16 Intervertebral disc disorders with radiculopathy, lumbar region (principal); Z79.899 Other long term (current) drug therapy
CPT/HCPCS: 62323; J1030; Q9967

== ENCOUNTER → 2021-03-30 | Outpatient (CLI) | payer OTHER ==
[~2021-03-30] MED LIST changes: -ISOVUE-M 300 61% 15ML VIAL As Ordered ONE; -LIDOCAINE 1% SDV 30ML VIAL As Ordered ONE; -diazePAM 5MG TABLET As Ordered ONE; -methylPREDNISolone SUSP 40MG/ML 1ML VIAL (DEPO MEDROL) As Ordered ONE; -oxyCODONE 5MG TAB As Ordered ONE
== END ==
LOC: M PAIN 13:30
PROVIDERS: ATTEND Anesthesiology
DX: G89.29 Other chronic pain (principal); M51.16 Intervertebral disc disorders with radiculopathy, lumbar region; Z79.899 Other long term (current) drug therapy

== ENCOUNTER → 2021-06-28 | Outpatient (CLI) | payer OTHER | LOC: M PAIN 09:00 | PROVIDERS: ATTEND Anesthesiology | DX: M51.16 Intervertebral disc disorders with radiculopathy, lumbar region (principal); G89.29 Other chronic pain; Z79.899 Other long term (current) drug therapy ==

== ENCOUNTER → 2021-10-04 | Outpatient (CLI) | payer OTHER | LOC: M PAIN 09:30 | PROVIDERS: ATTEND Anesthesiology | DX: M48.061 Spinal stenosis, lumbar region without neurogenic claudication (principal); M51.16 Intervertebral disc disorders with radiculopathy, lumbar region; G89.29 Other chronic pain; Z79.899 Other long term (current) drug therapy ==

== ENCOUNTER → 2021-12-13 | Outpatient (CLI) | payer OTHER | LOC: M WUC 09:00 | PROVIDERS: ATTEND Nurse Practitioner Adult Health | DX: M50.322 Other cervical disc degeneration at C5-C6 level (principal) ==

== ENCOUNTER → 2022-01-19 | Outpatient (CLI) | payer OTHER | LOC: M PAIN 09:15 | PROVIDERS: ATTEND Anesthesiology | DX: M48.061 Spinal stenosis, lumbar region without neurogenic claudication (principal); G89.29 Other chronic pain; Z79.899 Other long term (current) drug therapy ==

== ENCOUNTER → 2022-04-16 | Outpatient (CLI) | payer OTHER | LOC: M PAIN 09:30 | PROVIDERS: ATTEND Anesthesiology | DX: M51.16 Intervertebral disc disorders with radiculopathy, lumbar region (principal); M48.061 Spinal stenosis, lumbar region without neurogenic claudication; J30.1 Allergic rhinitis due to pollen; Z79.1 Long term (current) use of non-steroidal anti-inflammatories (NSAID); Z79.899 Other long term (current) drug therapy ==

== ENCOUNTER → 2022-06-25 | Outpatient (CLI) | payer OTHER | LOC: M LABSMTC 10:59 | PROVIDERS: ATTEND Anesthesiology | DX: Z01.812 Encounter for preprocedural laboratory examination (principal) ==

== ENCOUNTER → 2022-06-29 | Outpatient (CLI) | payer OTHER ==
[~2022-06-29] MED LIST changes: +ISOVUE-M 300 61% 15ML VIAL As Ordered ONE; +LIDOCAINE 1% SDV 30ML VIAL As Ordered ONE; +NORCO, ANEXSIA 5/325MG TABLET (HYDROcodone/ACETAMINOPHEN) As Ordered ONE; +diazePAM 5MG TABLET As Ordered ONE; +methylPREDNISolone SUSP 40MG/ML 1ML VIAL (DEPO MEDROL) As Ordered ONE
== END ==
LOC: M PAIN 07:45
PROVIDERS: ATTEND Anesthesiology
DX: M51.16 Intervertebral disc disorders with radiculopathy, lumbar region (principal); J30.1 Allergic rhinitis due to pollen; Z79.1 Long term (current) use of non-steroidal anti-inflammatories (NSAID); Z79.899 Other long term (current) drug therapy; J30.89 Other allergic rhinitis
CPT/HCPCS: 62323; J1030; Q9967

== ENCOUNTER → 2022-07-27 | Outpatient (CLI) | payer OTHER ==
[~2022-07-27] MED LIST changes: -ISOVUE-M 300 61% 15ML VIAL As Ordered ONE; -LIDOCAINE 1% SDV 30ML VIAL As Ordered ONE; -NORCO, ANEXSIA 5/325MG TABLET (HYDROcodone/ACETAMINOPHEN) As Ordered ONE; -diazePAM 5MG TABLET As Ordered ONE; -methylPREDNISolone SUSP 40MG/ML 1ML VIAL (DEPO MEDROL) As Ordered ONE
== END ==
LOC: M PAIN 15:15 → M TMPAIN 15:15
PROVIDERS: ATTEND Anesthesiology
DX: G89.29 Other chronic pain (principal); M48.061 Spinal stenosis, lumbar region without neurogenic claudication; M48.062 Spinal stenosis, lumbar region with neurogenic claudication; Z79.899 Other long term (current) drug therapy

== ENCOUNTER → 2022-09-12 | Outpatient (CLI) | payer OTHER | LOC: M RAD 13:31 | PROVIDERS: ATTEND Anesthesiology | DX: M48.062 Spinal stenosis, lumbar region with neurogenic claudication (principal); M47.896 Other spondylosis, lumbar region ==

== ENCOUNTER → 2022-09-18 | Outpatient (CLI) | payer OTHER | LOC: M PAIN 10:15 | PROVIDERS: ATTEND Nurse Practitioner Family | DX: M48.00 Spinal stenosis, site unspecified (principal); G89.29 Other chronic pain; Z91.09 Other allergy status, other than to drugs and biological substances; Z79.899 Other long term (current) drug therapy ==

== ENCOUNTER 2023-05-29 06:42 | Day surgery (SDC) | payer OTHER ==
[~2023-05-29] VITALS: Ht 172.7 cm; Wt 92.0 kg
[~2023-05-29 06:42] MED LIST changes: +ACET-683 PO; +ARTIDRO4 OU; +CETI10CH PO; +ESSETAB4 PO; +NS 1,000 ML IV ONE; +OCUVCAP PO; +ONETAB9 PO
[2023-05-29 07:53] VITALS: TEMP 96.6
[2023-05-29] MEDS ORDERED: LIDOCAINE 2% 100MG/5ML SDV (FOR ANES.) As Ordered ONE (07:58)
[2023-05-29] MEDS ORDERED: propofoL 200 MG/20 ML VIAL As Ordered ONE (07:58)
[2023-05-29 08:05] VITALS: BP 111/71; O2SAT 99
== END 2023-05-29 08:11 | disposition home or self-care (01) ==
LOC: M OPP 06:42
PROVIDERS: ATTEND Surgery
DX: Z12.11 Encounter for screening for malignant neoplasm of colon (principal); K64.1 Second degree hemorrhoids; D12.8 Benign neoplasm of rectum; Z79.1 Long term (current) use of non-steroidal anti-inflammatories (NSAID); Z79.52 Long term (current) use of systemic steroids

== ENCOUNTER → 2024-01-02 | Outpatient (CLI) | payer OTHER ==
[~2024-01-02] MED LIST changes: -NS 1,000 ML IV ONE
== END ==
LOC: M WUC 15:27
PROVIDERS: ATTEND Nurse Practitioner Adult Health
DX: M79.672 Pain in left foot (principal)